=== PATIENT | female | born 1980 | race Caucasian/White ===

== ENCOUNTER 2017-07-21 00:26 | Inpatient (IN) ==
[2017-07-21 02:18] LABS: EOS# 0.02 X1000 (0.0-0.7); EOS% 0.1 % (0.0-10.0); HEMATOCRIT 40.5 % (37.0-47.0); HEMOGLOBIN 13.6 g/dL (12.0-16.0); IMM GRAN# 0.06 X1000 (0.0-0.04); IMM GRAN% 0.3 % (0.0-0.5); LYMPH# 2.88 X1000 (1.2-3.4); LYMPH% 13.6 % (20.5-51.1); MANUAL DIFF NEEDED? NO; MCH 30.7 PG (27-31); MCHC 33.6 g/dL (33-37); MCV 91.4 FL (81-99); MONO# 1.52 X1000 (0.11-0.59); MONO% 7.2 % (1.7-9.3); MPV 9.4 FL (7.4-10.4); NEUT% 78.8 % (42.2-75.2); PLT 323 X1000 (130-400); RBC 4.43 XMIL (4.2-5.4)
[2017-07-21 02:27] LABS: AGAP 14; ALBUMIN 3.8 g/dL (3.5-5.0); ALKALINE PHOSPHATASE 79 U/L (32-104); BUN 6 mg/dL (8-22); CALCIUM 8.9 mg/dL (8.8-10.2); CHLORIDE 98 mmol/L (98-107); COSMO 273; GOT 13 U/L (10-30); GPT 32 U/L (10-36); POTASSIUM 3.3 mmol/L (3.5-5.1); SODIUM 137 mmol/L (136-145); TCO2 25 mmol/L (25-35); TOTAL PROTEIN 7.3 g/dL (6.3-8.3)
[2017-07-21] MEDS ORDERED: REGLAN IV ONE (03:23)
[2017-07-21] MEDS ORDERED: MORPHINE IV ONE ×2 (03:23→05:56)
[2017-07-21] MEDS ORDERED: REGLAN ONE (03:26)
[2017-07-21] MEDS ORDERED: CIPRO 400 MG/D5W 400 MG/200 ML IVPB IV SCH (05:00)
[2017-07-21] MEDS ORDERED: MORPHINE IV PRN (05:04)
[2017-07-21] MEDS ORDERED: VANCOMYCIN IV PER PHARMACY MISC SCH (05:15)
[2017-07-21] MEDS ORDERED: VANCOMYCIN 2,000 MG in NS 500 ML IV SCH (06:00)
[2017-07-21] MEDS: MORPHINE IV PRN ×4 (08:05→14:12)
[2017-07-21] MEDS ORDERED: LEVAQUIN 750 MG/D5W 750 MG/150 ML IVPB IV SCH (10:00)
[2017-07-21] MEDS: OFIRMEV 1000 MG/ISOTONIC SOLN 1,000 MG/100 ML BOTTLE IV SCH ×3 (10:41→22:24)
[2017-07-21] MEDS ORDERED: DILAUDID IV PRN (14:50)
[2017-07-21] MEDS: MERREM 1 GM in NS 50 ML IV SCH ×2 (14:57→22:29)
[2017-07-21] MEDS: TORADOL IV SCH ×2 (14:58→20:50)
[2017-07-21] MEDS ORDERED: ROBINUL ONE (16:22)
[2017-07-21] MEDS ORDERED: XYLOCAINE-MPF 2% ONE (16:22)
[2017-07-21] MEDS ORDERED: DIPRIVAN 1% ONE (16:27)
[2017-07-21] MEDS ORDERED: XYLOCAINE-MPF 4% MISC ONE (16:36)
[2017-07-21] MEDS ORDERED: ROBINUL IV ONE (16:38)
[2017-07-21] MEDS ORDERED: DECADRON IV ONE (16:38)
[2017-07-21] MEDS ORDERED: VERSED ONE (16:39)
[2017-07-21] MEDS ORDERED: KETAMINE ONE (16:39)
[2017-07-21] MEDS ORDERED: XYLOCAINE 2% JELLY ONE (16:41)
[2017-07-21] MEDS ORDERED: XYLOCAINE 2% VISCOUS ONE ×2 (16:42)
[2017-07-21] MEDS ORDERED: NEO-SYNEPHRINE 1% NASAL SPRAY ONE (16:44)
[2017-07-21] MEDS ORDERED: SODIUM CHLORIDE 0.9% 30 ML ONE (16:48)
[2017-07-21] MEDS ORDERED: NEO-SYNEPHRINE ONE (16:48)
[2017-07-21] MEDS: NS 1,000 ML IV SCH (16:49)
[2017-07-21] MEDS ORDERED: FENTANYL ONE (16:58)
[2017-07-21] MEDS ORDERED: XYLOCAINE 1%/EPI 1:100,000 ONE (17:05)
[2017-07-21] MEDS ORDERED: LUBRIFRESH PM OPH OINTMENT ONE (18:16)
[2017-07-21] MEDS ORDERED: BSS OPHTH SOLN ONE (18:24)
[2017-07-21] MEDS: DIPRIVAN 1% 1,000 MG/100 ML BOTTLE IV SCH ×4 (18:30→23:01)
[2017-07-21] MEDS: DILAUDID IV PRN (19:16)
[2017-07-21] MEDS ORDERED: ZOFRAN ONE (19:49)
[2017-07-21 20:05] LABS: URINE CULTURE NEEDED? NO; URINE SOURCE CATH
[2017-07-21 20:15] LABS: BILIRUBIN URINE NEGATIVE (NEGATIVE); BLOOD URINE TRACE (NEGATIVE); COLOR YELLOW; GLUCOSE URINE TRACE mg/dL (NEGATIVE); LEUKOCYTES URINE NEGATIVE (NEGATIVE); NITRITE URINE NEGATIVE (NEGATIVE); PROTEIN URINE 100 mg/dL (NEGATIVE); SP GRAVITY URINE 1.042; TURBIDITY URINE HAZY (CLEAR); UROBILINOGEN URINE NORMAL (NORMAL)
[2017-07-21 20:16] LABS: URINE MICRO REVIEW NEEDED? YES
[2017-07-21 20:17] LABS: UR EPITHELIAL CELLS >10 /HPF (<10); URINE BACTERIA NEGATIVE /HPF; URINE RBC <10 /HPF (<10); URINE WBC <10 /HPF (<10)
[2017-07-22] MEDS ORDERED: VANCOMYCIN 2,000 MG in NS 500 ML IV SCH ×2
[2017-07-22] MEDS: DIPRIVAN 1% 1,000 MG/100 ML BOTTLE IV SCH ×14 (00:42→22:52)
[2017-07-22] MEDS: DILAUDID IV PRN ×5 (00:54→20:17)
[2017-07-22] MEDS: NS 1,000 ML IV SCH ×3 (02:39→16:00)
[2017-07-22] MEDS: TORADOL IV SCH ×4 (02:39→21:23)
[2017-07-22] MEDS: OFIRMEV 1000 MG/ISOTONIC SOLN 1,000 MG/100 ML BOTTLE IV SCH ×4 (03:38→22:21)
[2017-07-22 04:42] LABS: ALLEN TEST YES; BE 1.1 mmoll (-3.0-3.0); BLOOD TYPE ARTERIAL; DRAW SITE R RADIAL; METHB 1.9 % (0.0-1.5); PCO2(98.6) 37 mmHg (35-45); PO2(98.6) 154 mmHg (60-100); SAMPLE BLOOD; SAO2 99.6 % (95.0-100.0); SRATE 10 BPM; THB 11.6 g/dL (11.5-17.4); TVOL 700 mL; pH(98.6) 7.44 (7.35-7.45)
[2017-07-22 04:44] LABS: MODALITY VENTILATOR
[2017-07-22] MEDS ORDERED: NS 1,000 ML IV ONE ×2 (05:48→14:21)
[2017-07-22] MEDS: MERREM 1 GM in NS 50 ML IV SCH ×3 (06:00→21:36)
[2017-07-22 06:18] LABS: AGAP 15; BUN 9 mg/dL (8-22); CALCIUM 7.9 mg/dL (8.8-10.2); CHLORIDE 98 mmol/L (98-107); COSMO 270; POTASSIUM 4.1 mmol/L (3.5-5.1); SODIUM 135 mmol/L (136-145); TCO2 22 mmol/L (25-35)
[2017-07-22] MEDS ORDERED: SODIUM CHLORIDE 0.9% INJ PRN (06:23)
[2017-07-22 06:29] LABS: INR 1.36; PROTIME 14.6 Seconds (9.2-11.7)
[2017-07-22 06:42] LABS: HEMATOCRIT 34.7 % (37.0-47.0); HEMOGLOBIN 11.3 g/dL (12.0-16.0); IMM GRAN# 0.06 X1000 (0.0-0.04); IMM GRAN% 0.3 % (0.0-0.5); MANUAL DIFF NEEDED? YES; MCH 30.3 PG (27-31); MCHC 32.6 g/dL (33-37); MONO# 1.11 X1000 (0.11-0.59); MONO% 5.5 % (1.7-9.3); MPV 9.7 FL (7.4-10.4); NEUT% 88.2 % (42.2-75.2); PLT 347 X1000 (130-400); RBC 3.73 XMIL (4.2-5.4)
[2017-07-22 07:43] LABS: BANDS 4 % (0-1); LYMPHS 8 % (21-51); MONO 6 % (1-9)
[2017-07-22] MEDS ORDERED: NS 250 ML ONE (08:00)
[2017-07-22] MEDS ORDERED: ATIVAN IV ONE (08:30)
[2017-07-22] MEDS ORDERED: ATIVAN ONE (08:34)
[2017-07-22] MEDS: SODIUM CHLORIDE 0.9% INJ SCH (13:57)
[2017-07-22] MEDS: PROTONIX IV SCH (13:57)
[2017-07-22] MEDS: ATIVAN IV PRN ×2 (14:41→21:35)
[2017-07-22] MEDS: DUONEB (A & A) INH SCH ×3 (20:11→23:50)
[2017-07-23] MEDS: DIPRIVAN 1% 1,000 MG/100 ML BOTTLE IV SCH ×12 (00:32→22:36)
[2017-07-23] MEDS: NS 1,000 ML IV SCH ×4 (00:43→21:00)
[2017-07-23] MEDS: TORADOL IV SCH ×4 (02:14→20:37)
[2017-07-23] MEDS: DUONEB (A & A) INH SCH ×6 (02:55→23:05)
[2017-07-23] MEDS: OFIRMEV 1000 MG/ISOTONIC SOLN 1,000 MG/100 ML BOTTLE IV SCH ×4 (04:02→22:36)
[2017-07-23] MEDS: DILAUDID IV PRN ×6 (04:30→20:38)
[2017-07-23 04:56] LABS: ALLEN TEST YES; BE -3.2 mmoll (-3.0-3.0); BLOOD TYPE ARTERIAL; DRAW SITE R RADIAL; METHB 1.4 % (0.0-1.5); O2(CT) 18.1 mL/dL (15.0-23.0); PCO2(98.6) 35 mmHg (35-45); PO2(98.6) 123 mmHg (60-100); SAMPLE BLOOD; SRATE 10 BPM; THB 13.2 g/dL (11.5-17.4); TVOL 600 mL; pH(98.6) 7.39 (7.35-7.45)
[2017-07-23 04:57] LABS: MODALITY VENTILATOR
[2017-07-23] MEDS: MERREM 1 GM in NS 50 ML IV SCH ×3 (05:25→22:36)
[2017-07-23 05:30] LABS: HEMATOCRIT 28.5 % (37.0-47.0); HEMOGLOBIN 9.3 g/dL (12.0-16.0); MCH 31.6 PG (27-31); MCHC 32.6 g/dL (33-37); MCV 96.9 FL (81-99); MPV 9.4 FL (7.4-10.4); RBC 2.94 XMIL (4.2-5.4)
[2017-07-23 06:06] LABS: AGAP 16; ALBUMIN 2.3 g/dL (3.5-5.0); ALKALINE PHOSPHATASE 51 U/L (32-104); BUN 15 mg/dL (8-22); CALCIUM 7.9 mg/dL (8.8-10.2); CHLORIDE 100 mmol/L (98-107); COSMO 276; GOT 21 U/L (10-30); GPT 28 U/L (10-36); MAGNESIUM 1.9 mg/dL (1.5-2.7); POTASSIUM 3.6 mmol/L (3.5-5.1); SODIUM 138 mmol/L (136-145); TCO2 22 mmol/L (25-35); TOTAL BILIRUBIN 0.18 mg/dL (0.20-1.00); TOTAL PROTEIN 5.1 g/dL (6.3-8.3)
[2017-07-23] MEDS ORDERED: NS + KCL 40 MEQ 1,000 ML IV SCH (11:00)
[2017-07-23] MEDS: PROTONIX IV SCH (12:32)
[2017-07-23] MEDS: SODIUM CHLORIDE 0.9% INJ SCH (12:32)
[2017-07-23] MEDS: ATIVAN IV PRN ×2 (14:01→19:48)
[2017-07-23] MEDS: MUCOMYST 20% INH SCH (19:52)
[2017-07-23] MEDS ORDERED: LASIX IV ONE (22:15)
[2017-07-24] MEDS: DIPRIVAN 1% 1,000 MG/100 ML BOTTLE IV SCH ×11 (00:14→21:17)
[2017-07-24] MEDS: ATIVAN IV PRN (00:23)
[2017-07-24] MEDS: DILAUDID IV PRN ×3 (00:26→03:33)
[2017-07-24] MEDS: TORADOL IV SCH ×2 (03:31→09:34)
[2017-07-24] MEDS: DUONEB (A & A) INH SCH ×6 (03:32→22:51)
[2017-07-24] MEDS: OFIRMEV 1000 MG/ISOTONIC SOLN 1,000 MG/100 ML BOTTLE IV SCH ×2 (03:32→09:53)
[2017-07-24 04:28] LABS: ALLEN TEST YES; BE -5.6 mmoll (-3.0-3.0); BLOOD TYPE ARTERIAL; DRAW SITE R RADIAL; METHB 1.4 % (0.0-1.5); O2(CT) 12.5 mL/dL (15.0-23.0); PCO2(98.6) 46 mmHg (35-45); PO2(98.6) 68 mmHg (60-100); SAMPLE BLOOD; SAO2 95.1 % (95.0-100.0); SRATE 10 BPM; THB 9.6 g/dL (11.5-17.4); TVOL 600 mL; pH(98.6) 7.27 (7.35-7.45)
[2017-07-24 04:29] LABS: MODALITY VENTILATOR
[2017-07-24 05:01] LABS: HEMATOCRIT 30.1 % (37.0-47.0); HEMOGLOBIN 10.2 g/dL (12.0-16.0); MCH 32.4 PG (27-31); MCHC 33.9 g/dL (33-37); MCV 95.6 FL (81-99); RBC 3.15 XMIL (4.2-5.4)
[2017-07-24] MEDS: NS 1,000 ML IV SCH (05:04)
[2017-07-24 06:28] LABS: AGAP 19; ALBUMIN 1.8 g/dL (3.5-5.0); ALKALINE PHOSPHATASE 59 U/L (32-104); BUN 12 mg/dL (8-22); CALCIUM 7.8 mg/dL (8.8-10.2); CHLORIDE 101 mmol/L (98-107); COSMO 272; GOT 29 U/L (10-30); GPT 14 U/L (10-36); MAGNESIUM 1.7 mg/dL (1.5-2.7); POTASSIUM 4.4 mmol/L (3.5-5.1); SODIUM 137 mmol/L (136-145); TCO2 17 mmol/L (25-35); TOTAL BILIRUBIN 0.28 mg/dL (0.20-1.00); TOTAL PROTEIN 4.9 g/dL (6.3-8.3)
[2017-07-24] MEDS: MERREM 1 GM in NS 50 ML IV SCH ×3 (06:55→22:07)
[2017-07-24] MEDS: MUCOMYST 20% INH SCH ×2 (07:15→19:03)
[2017-07-24] MEDS ORDERED: KETAMINE ONE (08:47)
[2017-07-24] MEDS ORDERED: NORCURON ONE (09:22)
[2017-07-24] MEDS: NIMBEX 80 MG in NS 160 ML IV SCH ×4 (09:36→21:45)
[2017-07-24] MEDS ORDERED: LASIX IV STA ×2 (09:43→10:19)
[2017-07-24] MEDS ORDERED: DILAUDID IV PRN (10:01)
[2017-07-24] MEDS: ALBUMIN 25% IV SCH ×3 (10:18→22:00)
[2017-07-24] MEDS: SODIUM BICARBONATE 8.4% 100 MEQ in D5W 1,000 ML IV SCH (10:57)
[2017-07-24] MEDS: XYLOCAINE-MPF 4% ONE (11:03)
[2017-07-24] MEDS ORDERED: ROBINUL ONE (11:55)
[2017-07-24] MEDS: ATIVAN IV SCH ×3 (12:33→20:14)
[2017-07-24] MEDS: SODIUM CHLORIDE 0.9% INJ SCH (12:33)
[2017-07-24] MEDS: PROTONIX IV SCH (12:33)
[2017-07-24 14:45] LABS: ALLEN TEST YES; BE -4.7 mmoll (-3.0-3.0); BLOOD TYPE ARTERIAL; DRAW SITE R RADIAL; O2(CT) 12.3 mL/dL (15.0-23.0); PO2(98.6) 63 mmHg (60-100); SAMPLE BLOOD; SAO2 96.5 % (95.0-100.0); SRATE 6 BPM; THB 9.5 g/dL (11.5-17.4); TVOL 400 mL
[2017-07-24 14:48] LABS: MODALITY VENTILATOR; PCO2(98.6) 71 mmHg (35-45); pH(98.6) 7.15 (7.35-7.45)
[2017-07-24] MEDS: LASIX IV SCH ×2 (15:00→22:23)
[2017-07-24] MEDS: DILAUDID IV SCH ×4 (15:00→22:16)
[2017-07-24] MEDS ORDERED: NS 1,000 ML ONE (17:23)
[2017-07-24] MEDS ORDERED: LASIX IV ONE (18:07)
[2017-07-24 19:22] LABS: AGAP 18; BUN 12 mg/dL (8-22); CALCIUM 7.8 mg/dL (8.8-10.2); CHLORIDE 97 mmol/L (98-107); COSMO 277; MAGNESIUM 1.6 mg/dL (1.5-2.7); POTASSIUM 4.7 mmol/L (3.5-5.1); SODIUM 138 mmol/L (136-145); TCO2 23 mmol/L (25-35)
[2017-07-24] MEDS: NS 500 ML IV SCH (20:16)
[2017-07-25] MEDS: DIPRIVAN 1% 1,000 MG/100 ML BOTTLE IV SCH ×15 (00:08→22:32)
[2017-07-25] MEDS: ATIVAN IV SCH ×6 (00:08→21:02)
[2017-07-25] MEDS: DILAUDID IV SCH ×11 (00:08→21:03)
[2017-07-25] MEDS: NIMBEX 80 MG in NS 160 ML IV SCH ×9 (01:18→22:32)
[2017-07-25] MEDS: SODIUM BICARBONATE 8.4% 100 MEQ in D5W 1,000 ML IV SCH ×2 (01:18→22:32)
[2017-07-25] MEDS: DUONEB (A & A) INH SCH ×6 (02:48→22:52)
[2017-07-25] MEDS: LASIX IV SCH ×4 (04:14→21:02)
[2017-07-25 04:34] LABS: ALLEN TEST YES; BE 3.1 mmoll (-3.0-3.0); BLOOD TYPE ARTERIAL; DRAW SITE R RADIAL; METHB 2.3 % (0.0-1.5); O2(CT) 13.9 mL/dL (15.0-23.0); PO2(98.6) 257 mmHg (60-100); SAMPLE BLOOD; SAO2 100.8 % (95.0-100.0); SRATE 18 BPM; THB 9.7 g/dL (11.5-17.4); TVOL 400 mL; pH(98.6) 7.29 (7.35-7.45)
[2017-07-25 04:35] LABS: PCO2(98.6) 64 mmHg (35-45)
[2017-07-25 04:36] LABS: MODALITY VENTILATOR
[2017-07-25 04:59] LABS: HEMATOCRIT 29.7 % (37.0-47.0); HEMOGLOBIN 10.7 g/dL (12.0-16.0); MCH 35.2 PG (27-31); MCV 97.7 FL (81-99); MPV 9.7 FL (7.4-10.4); RBC 3.04 XMIL (4.2-5.4)
[2017-07-25] MEDS: MERREM 1 GM in NS 50 ML IV SCH ×3 (05:19→21:02)
[2017-07-25 05:20] LABS: AGAP 15; ALBUMIN 2.3 g/dL (3.5-5.0); ALKALINE PHOSPHATASE 68 U/L (32-104); BUN 11 mg/dL (8-22); CALCIUM 7.9 mg/dL (8.8-10.2); CHLORIDE 97 mmol/L (98-107); COSMO 278; MAGNESIUM 1.6 mg/dL (1.5-2.7); POTASSIUM 3.8 mmol/L (3.5-5.1); SODIUM 139 mmol/L (136-145); TCO2 27 mmol/L (25-35); TOTAL BILIRUBIN 0.58 mg/dL (0.20-1.00)
[2017-07-25 06:08] LABS: GOT 71 U/L (10-30); GPT 39 U/L (10-36)
[2017-07-25] MEDS: MUCOMYST 20% INH SCH ×2 (07:28→18:55)
[2017-07-25] MEDS ORDERED: MAGNESIUM SULFATE 2 GM/S.W.I. 2 GM/50 ML IVPB IV ONE (09:18)
[2017-07-25] MEDS: SODIUM CHLORIDE 0.9% INJ SCH (12:14)
[2017-07-25] MEDS: PROTONIX IV SCH (12:14)
[2017-07-25] MEDS: NS 500 ML IV SCH ×2 (13:31→21:02)
[2017-07-26] MEDS: SODIUM BICARBONATE 8.4% 100 MEQ in D5W 1,000 ML IV SCH (00:17)
[2017-07-26] MEDS: ATIVAN IV SCH ×6 (00:18→19:57)
[2017-07-26] MEDS: DILAUDID IV SCH ×13 (00:18→22:37)
[2017-07-26] MEDS: DIPRIVAN 1% 1,000 MG/100 ML BOTTLE IV SCH ×14 (00:21→22:38)
[2017-07-26] MEDS: NIMBEX 80 MG in NS 160 ML IV SCH ×2 (02:50→06:35)
[2017-07-26] MEDS: DUONEB (A & A) INH SCH ×6 (03:12→22:55)
[2017-07-26] MEDS: LASIX IV SCH ×4 (04:06→22:38)
[2017-07-26 04:35] LABS: ALLEN TEST YES; BE 18.8 mmoll (-3.0-3.0); BLOOD TYPE ARTERIAL; DRAW SITE R RADIAL; O2(CT) 10.9 mL/dL (15.0-23.0); PO2(98.6) 169 mmHg (60-100); SAMPLE BLOOD; SAO2 100.1 % (95.0-100.0); SRATE 18 BPM; THB 7.8 g/dL (11.5-17.4); TVOL 400 mL; pH(98.6) 7.49 (7.35-7.45)
[2017-07-26 04:37] LABS: PCO2(98.6) 58 mmHg (35-45)
[2017-07-26 04:38] LABS: MODALITY VENTILATOR
[2017-07-26] MEDS: MERREM 1 GM in NS 50 ML IV SCH ×2 (05:06→14:07)
[2017-07-26 05:55] LABS: HEMATOCRIT 26.4 % (37.0-47.0); HEMOGLOBIN 10.1 g/dL (12.0-16.0); MCHC 38.3 g/dL (33-37); MCV 96.7 FL (81-99); MPV 9.7 FL (7.4-10.4); RBC 2.73 XMIL (4.2-5.4)
[2017-07-26 06:26] LABS: AGAP 16; ALBUMIN 2.3 g/dL (3.5-5.0); ALKALINE PHOSPHATASE 71 U/L (32-104); BUN 8 mg/dL (8-22); CALCIUM 7.7 mg/dL (8.8-10.2); CHLORIDE 90 mmol/L (98-107); COSMO 279; GOT 46 U/L (10-30); GPT 36 U/L (10-36); POTASSIUM 2.9 mmol/L (3.5-5.1); SODIUM 141 mmol/L (136-145); TCO2 35 mmol/L (25-35); TOTAL BILIRUBIN 0.45 mg/dL (0.20-1.00); TOTAL PROTEIN 5.6 g/dL (6.3-8.3)
[2017-07-26] MEDS: DIFLUCAN 400 MG/NS 400 MG/200 ML IVPB IV SCH (06:35)
[2017-07-26] MEDS: MUCOMYST 20% INH SCH ×2 (07:41→20:18)
[2017-07-26] MEDS ORDERED: POTASSIUM CHLORIDE 60 MEQ in NS 500 ML IV ONE (07:51)
[2017-07-26] MEDS: D5 1/2 NS 1,000 ML IV SCH (09:51)
[2017-07-26] MEDS: SODIUM CHLORIDE 0.9% INJ SCH (12:22)
[2017-07-26] MEDS: PROTONIX IV SCH (12:22)
[2017-07-26] MEDS: OFIRMEV 1000 MG/ISOTONIC SOLN 1,000 MG/100 ML BOTTLE IV PRN (15:21)
[2017-07-26] MEDS: NS 500 ML IV SCH (18:43)
[2017-07-26] MEDS: INVANZ 1 GM/NS 1 GM/50 ML IVPB IV SCH (19:57)
[2017-07-27] MEDS: ATIVAN IV SCH ×6 (00:10→20:07)
[2017-07-27] MEDS: DILAUDID IV SCH ×13 (00:10→23:15)
[2017-07-27] MEDS: DIPRIVAN 1% 1,000 MG/100 ML BOTTLE IV SCH ×13 (00:23→23:39)
[2017-07-27] MEDS: DUONEB (A & A) INH SCH ×6 (03:23→23:30)
[2017-07-27] MEDS: LASIX IV SCH ×2 (03:53→13:05)
[2017-07-27 04:54] LABS: ALLEN TEST YES; BLOOD TYPE ARTERIAL; DRAW SITE R RADIAL; METHB 2.5 % (0.0-1.5); O2(CT) 11.5 mL/dL (15.0-23.0); PO2(98.6) 112 mmHg (60-100); SAMPLE BLOOD; SAO2 100.4 % (95.0-100.0); SRATE 16 BPM; THB 8.4 g/dL (11.5-17.4); TVOL 400 mL; pH(98.6) 7.54 (7.35-7.45)
[2017-07-27 04:57] LABS: MODALITY VENTILATOR
[2017-07-27 04:58] LABS: PCO2(98.6) 55 mmHg (35-45)
[2017-07-27] MEDS: NS 500 ML IV SCH (05:09)
[2017-07-27 05:50] LABS: AGAP 14; ALBUMIN 2.3 g/dL (3.5-5.0); ALKALINE PHOSPHATASE 88 U/L (32-104); BUN 14 mg/dL (8-22); CALCIUM 7.6 mg/dL (8.8-10.2); CHLORIDE 89 mmol/L (98-107); COSMO 285; GOT 69 U/L (10-30); GPT 40 U/L (10-36); SODIUM 142 mmol/L (136-145); TCO2 39 mmol/L (25-35); TOTAL BILIRUBIN 0.63 mg/dL (0.20-1.00); TOTAL PROTEIN 5.4 g/dL (6.3-8.3)
[2017-07-27 05:54] LABS: MAGNESIUM 1.9 mg/dL (1.5-2.7)
[2017-07-27] MEDS: DIFLUCAN 400 MG/NS 400 MG/200 ML IVPB IV SCH (05:57)
[2017-07-27] MEDS: D5 1/2 NS 1,000 ML IV SCH (05:57)
[2017-07-27 06:26] LABS: HEMATOCRIT 28.5 % (37.0-47.0); HEMOGLOBIN 10.7 g/dL (12.0-16.0); MCH 36.4 PG (27-31); MCHC 37.5 g/dL (33-37); MCV 96.9 FL (81-99); MPV 9.8 FL (7.4-10.4); RBC 2.94 XMIL (4.2-5.4)
[2017-07-27] MEDS: OFIRMEV 1000 MG/ISOTONIC SOLN 1,000 MG/100 ML BOTTLE IV PRN (07:57)
[2017-07-27] MEDS: MUCOMYST 20% INH SCH ×2 (07:57→19:59)
[2017-07-27 08:45] LABS: POTASSIUM 2.1 mmol/L (3.5-5.1)
[2017-07-27] MEDS: LOVENOX SUBQ SCH (09:14)
[2017-07-27] MEDS ORDERED: POTASSIUM PHOSPHATE 30 MMOL in NS 250 ML IV ONE (10:00)
[2017-07-27] MEDS: PROTONIX IV SCH (13:05)
[2017-07-27 16:24] LABS: POTASSIUM 2.9 mmol/L (3.5-5.1)
[2017-07-27] MEDS: INVANZ 1 GM/NS 1 GM/50 ML IVPB IV SCH (21:13)
[2017-07-28] MEDS: OFIRMEV 1000 MG/ISOTONIC SOLN 1,000 MG/100 ML BOTTLE IV PRN (00:09)
[2017-07-28] MEDS: POTASSIUM CHLORIDE 20 MEQ/SWI 20 MEQ/100 ML IVPB IV SCH ×2 (00:09→02:28)
[2017-07-28] MEDS: ATIVAN IV SCH ×6 (00:09→20:28)
[2017-07-28] MEDS: DILAUDID IV SCH ×12 (01:01→22:43)
[2017-07-28] MEDS: D5 1/2 NS 1,000 ML IV SCH (01:21)
[2017-07-28] MEDS: DIPRIVAN 1% 1,000 MG/100 ML BOTTLE IV SCH ×9 (01:21→22:43)
[2017-07-28] MEDS: LASIX IV SCH (02:29)
[2017-07-28] MEDS: DUONEB (A & A) INH SCH ×6 (04:05→23:31)
[2017-07-28 04:58] LABS: ALLEN TEST YES; BE 19.8 mmoll (-3.0-3.0); BLOOD TYPE ARTERIAL; DRAW SITE R RADIAL; O2(CT) 14.3 mL/dL (15.0-23.0); PCO2(98.6) 43 mmHg (35-45); PO2(98.6) 104 mmHg (60-100); SAMPLE BLOOD; SAO2 100.8 % (95.0-100.0); SRATE 12 BPM; THB 10.7 g/dL (11.5-17.4); TVOL 500 mL
[2017-07-28 04:59] LABS: METHB 3.6 % (0.0-1.5); MODALITY VENTILATOR; pH(98.6) 7.61 (7.35-7.45)
[2017-07-28] MEDS: DIFLUCAN 400 MG/NS 400 MG/200 ML IVPB IV SCH (06:00)
[2017-07-28] MEDS: NS 500 ML IV SCH (06:04)
[2017-07-28 06:55] LABS: HEMATOCRIT 27.2 % (37.0-47.0); HEMOGLOBIN 10.2 g/dL (12.0-16.0); MCH 34.9 PG (27-31); MCHC 37.5 g/dL (33-37); MCV 93.2 FL (81-99); RBC 2.92 XMIL (4.2-5.4)
[2017-07-28 07:18] LABS: ALBUMIN 1.3 g/dL (3.5-5.0); CALCIUM 7.5 mg/dL (8.8-10.2); TOTAL BILIRUBIN 0.65 mg/dL (0.20-1.00)
[2017-07-28 07:38] LABS: POTASSIUM 2.5 mmol/L (3.5-5.1)
[2017-07-28] MEDS ORDERED: POTASSIUM CHLORIDE 40 MEQ/SWI 40 MEQ/100 ML IVPB IV ONE (08:19)
[2017-07-28] MEDS: LOVENOX SUBQ SCH (08:48)
[2017-07-28] MEDS: NS 1,000 ML IV SCH (10:49)
[2017-07-28] MEDS: MUCOMYST 20% INH SCH ×2 (11:52→19:10)
[2017-07-28] MEDS: PROTONIX IV SCH (13:40)
[2017-07-28] MEDS: POTASSIUM CHLORIDE 20% LIQUID PO SCH (17:20)
[2017-07-28] MEDS: INVANZ 1 GM/NS 1 GM/50 ML IVPB IV SCH (20:28)
[2017-07-29] MEDS: ATIVAN IV SCH ×7 (00:34→23:47)
[2017-07-29] MEDS: DILAUDID IV SCH ×12 (00:35→23:47)
[2017-07-29] MEDS: DIPRIVAN 1% 1,000 MG/100 ML BOTTLE IV SCH ×13 (01:00→23:47)
[2017-07-29] MEDS: POTASSIUM CHLORIDE 20% LIQUID PO SCH (02:34)
[2017-07-29] MEDS: NS 500 ML IV SCH ×2 (03:09→19:20)
[2017-07-29] MEDS: DUONEB (A & A) INH SCH ×6 (03:30→23:30)
[2017-07-29 04:44] LABS: ALLEN TEST YES; BE 23.1 mmoll (-3.0-3.0); BLOOD TYPE ARTERIAL; DRAW SITE R RADIAL; METHB 1.6 % (0.0-1.5); MODALITY VENTILATOR; O2(CT) 16.7 mL/dL (15.0-23.0); PCO2(98.6) 56 mmHg (35-45); PO2(98.6) 74 mmHg (60-100); SAMPLE BLOOD; SAO2 99.5 % (95.0-100.0); SRATE 12 BPM; THB 12.6 g/dL (11.5-17.4); TVOL 400 mL; pH(98.6) 7.55 (7.35-7.45)
[2017-07-29] MEDS: NS 1,000 ML IV SCH (05:59)
[2017-07-29] MEDS: DIFLUCAN 400 MG/NS 400 MG/200 ML IVPB IV SCH (05:59)
[2017-07-29 06:05] LABS: BASO% 0.2 % (0.0-0.8); EOS# 0.23 X1000 (0.0-0.7); HEMATOCRIT 25.4 % (37.0-47.0); IMM GRAN# 0.16 X1000 (0.0-0.04); IMM GRAN% 1.4 % (0.0-0.5); LYMPH# 1.46 X1000 (1.2-3.4); MANUAL DIFF NEEDED? YES; MCH 36.9 PG (27-31); MCHC 39.4 g/dL (33-37); MCV 93.7 FL (81-99); MONO# 0.53 X1000 (0.11-0.59); MONO% 4.7 % (1.7-9.3); MPV 10.7 FL (7.4-10.4); NEUT% 78.7 % (42.2-75.2); PLT 374 X1000 (130-400); RBC 2.71 XMIL (4.2-5.4)
[2017-07-29 06:29] LABS: SODIUM 139 mmol/L (136-145)
[2017-07-29 06:30] LABS: AGAP 13; ALBUMIN 1.2 g/dL (3.5-5.0); ALKALINE PHOSPHATASE 100 U/L (32-104); BUN 29 mg/dL (8-22); CALCIUM 7.5 mg/dL (8.8-10.2); CHLORIDE 92 mmol/L (98-107); COSMO 285; GOT 95 U/L (10-30); GPT 46 U/L (10-36); POTASSIUM 4.9 mmol/L (3.5-5.1); TCO2 34 mmol/L (25-35); TOTAL BILIRUBIN 0.35 mg/dL (0.20-1.00); TOTAL PROTEIN 5.8 g/dL (6.3-8.3)
[2017-07-29 06:43] LABS: BANDS 10 % (0-1); LYMPHS 10 % (21-51); MONO 2 % (1-9)
[2017-07-29] MEDS: MUCOMYST 20% INH SCH ×2 (08:06→19:40)
[2017-07-29] MEDS: OFIRMEV 1000 MG/ISOTONIC SOLN 1,000 MG/100 ML BOTTLE IV PRN (08:54)
[2017-07-29] MEDS: LOVENOX SUBQ SCH (08:55)
[2017-07-29] MEDS: ALBUMIN 25% IV SCH ×3 (10:04→21:12)
[2017-07-29] MEDS: LASIX IV SCH ×3 (11:12→22:43)
[2017-07-29 11:21] LABS: UR CREAT RANDOM 115.4 mg/dL (11-20)
[2017-07-29] MEDS: PROTONIX IV SCH (13:23)
[2017-07-29] MEDS: SODIUM CHLORIDE 0.9% INJ SCH (13:23)
[2017-07-29] MEDS: INVANZ 1 GM/NS 1 GM/50 ML IVPB IV SCH (20:19)
[2017-07-30] MEDS: DIPRIVAN 1% 1,000 MG/100 ML BOTTLE IV SCH ×10 (01:29→23:29)
[2017-07-30] MEDS: DILAUDID IV SCH ×5 (01:29→09:14)
[2017-07-30] MEDS: NS 1,000 ML IV SCH ×2 (01:30→21:49)
[2017-07-30] MEDS: DUONEB (A & A) INH SCH ×6 (03:25→23:25)
[2017-07-30] MEDS: ATIVAN IV SCH ×2 (04:17→08:18)
[2017-07-30] MEDS ORDERED: CARDIZEM 100 MG/NS 100 MG/100 ML IVPB ONE (04:37)
[2017-07-30 04:41] LABS: ALLEN TEST YES; BE 21.4 mmoll (-3.0-3.0); BLOOD TYPE ARTERIAL; DRAW SITE R RADIAL; METHB 1.5 % (0.0-1.5); O2(CT) 9.9 mL/dL (15.0-23.0); PO2(98.6) 138 mmHg (60-100); SAMPLE BLOOD; SAO2 101.3 % (95.0-100.0); SRATE 12 BPM; TVOL 400 mL
[2017-07-30 04:42] LABS: pH(98.6) 7.56 (7.35-7.45)
[2017-07-30 04:43] LABS: MODALITY VENTILATOR; PCO2(98.6) 51 mmHg (35-45)
[2017-07-30 04:59] LABS: HEMATOCRIT 23.3 % (37.0-47.0); MCH 38.1 PG (27-31); MCHC 38.6 g/dL (33-37); MCV 98.7 FL (81-99); MPV 10.7 FL (7.4-10.4); RBC 2.36 XMIL (4.2-5.4)
[2017-07-30 05:17] LABS: MAGNESIUM 2.5 mg/dL (1.5-2.7)
[2017-07-30 05:23] LABS: AGAP 11; ALBUMIN 2.6 g/dL (3.5-5.0); ALKALINE PHOSPHATASE 91 U/L (32-104); BUN 31 mg/dL (8-22); CALCIUM 7.9 mg/dL (8.8-10.2); CHLORIDE 92 mmol/L (98-107); COSMO 286; SODIUM 140 mmol/L (136-145); TCO2 37 mmol/L (25-35); TOTAL PROTEIN 6.3 g/dL (6.3-8.3)
[2017-07-30 05:30] LABS: GOT 217 U/L (10-30); GPT 101 U/L (10-36)
[2017-07-30] MEDS: DIFLUCAN 400 MG/NS 400 MG/200 ML IVPB IV SCH (05:55)
[2017-07-30] MEDS: MUCOMYST 20% INH SCH ×2 (07:07→19:43)
[2017-07-30] MEDS: LOVENOX SUBQ SCH (09:15)
[2017-07-30] MEDS: LASIX IV SCH ×3 (10:06→21:50)
[2017-07-30] MEDS: SODIUM CHLORIDE 0.9% INJ SCH (13:12)
[2017-07-30] MEDS: PROTONIX IV SCH (13:12)
[2017-07-30] MEDS: OFIRMEV 1000 MG/ISOTONIC SOLN 1,000 MG/100 ML BOTTLE IV PRN (16:06)
[2017-07-30] MEDS: DILAUDID IV PRN ×3 (17:39→21:50)
[2017-07-30] MEDS: INVANZ 1 GM/NS 1 GM/50 ML IVPB IV SCH (20:06)
[2017-07-30] MEDS: ATIVAN IV PRN (20:07)
[2017-07-30] MEDS: NS 500 ML IV SCH (20:17)
[2017-07-31] MEDS: DUONEB (A & A) INH SCH ×6 (03:12→22:55)
[2017-07-31] MEDS: DIPRIVAN 1% 1,000 MG/100 ML BOTTLE IV SCH ×9 (03:31→23:05)
[2017-07-31] MEDS: DILAUDID IV PRN ×7 (03:31→23:09)
[2017-07-31 04:23] LABS: ALLEN TEST YES; BE 17.1 mmoll (-3.0-3.0); BLOOD TYPE ARTERIAL; DRAW SITE R RADIAL; METHB 2.3 % (0.0-1.5); O2(CT) 9.5 mL/dL (15.0-23.0); PO2(98.6) 117 mmHg (60-100); SAMPLE BLOOD; SAO2 106.7 % (95.0-100.0); SRATE 12 BPM; THB 6.7 g/dL (11.5-17.4); TVOL 400 mL; pH(98.6) 7.52 (7.35-7.45)
[2017-07-31 04:25] LABS: MODALITY VENTILATOR; PCO2(98.6) 51 mmHg (35-45)
[2017-07-31 05:14] LABS: HEMATOCRIT 23.7 % (37.0-47.0); HEMOGLOBIN 9.4 g/dL (12.0-16.0); MCH 39.2 PG (27-31); MCHC 39.7 g/dL (33-37); MCV 98.8 FL (81-99); MPV 11.2 FL (7.4-10.4); RBC 2.4 XMIL (4.2-5.4)
[2017-07-31] MEDS: DIFLUCAN 400 MG/NS 400 MG/200 ML IVPB IV SCH (05:22)
[2017-07-31 05:36] LABS: AGAP 11; ALBUMIN 2.3 g/dL (3.5-5.0); ALKALINE PHOSPHATASE 87 U/L (32-104); BUN 33 mg/dL (8-22); CALCIUM 8.4 mg/dL (8.8-10.2); CHLORIDE 91 mmol/L (98-107); COSMO 283; POTASSIUM 4.4 mmol/L (3.5-5.1); SODIUM 138 mmol/L (136-145); TCO2 36 mmol/L (25-35); TOTAL BILIRUBIN 0.72 mg/dL (0.20-1.00); TOTAL PROTEIN 6.2 g/dL (6.3-8.3)
[2017-07-31 05:41] LABS: GOT 189 U/L (10-30); GPT 121 U/L (10-36)
[2017-07-31] MEDS: MUCOMYST 20% INH SCH ×2 (08:22→19:52)
[2017-07-31] MEDS: LOVENOX SUBQ SCH (09:38)
[2017-07-31] MEDS: LASIX IV SCH ×2 (11:41→18:34)
[2017-07-31 11:50] LABS: URINE CULTURE NEEDED? NO; URINE SOURCE CATH
[2017-07-31 11:59] LABS: BILIRUBIN URINE NEGATIVE (NEGATIVE); BLOOD URINE NEGATIVE (NEGATIVE); COLOR YELLOW; GLUCOSE URINE NEGATIVE (NEGATIVE); LEUKOCYTES URINE NEGATIVE (NEGATIVE); NITRITE URINE NEGATIVE (NEGATIVE); PH URINE 7.5; PROTEIN URINE 30 mg/dL (NEGATIVE); SP GRAVITY URINE 1.027; TURBIDITY URINE CLEAR (CLEAR); URINE MICRO REVIEW NEEDED? YES; UROBILINOGEN URINE 4 mg/dL (NORMAL)
[2017-07-31 12:12] LABS: UR EPITHELIAL CELLS <10 /HPF (<10); URINE BACTERIA NEGATIVE /HPF; URINE RBC <10 /HPF (<10); URINE WBC <10 /HPF (<10)
[2017-07-31 12:21] LABS: URINE CASTS NONE SEEN; URINE CRYSTALS NONE SEEN
[2017-07-31] MEDS: SODIUM CHLORIDE 0.9% INJ SCH (12:58)
[2017-07-31] MEDS: PROTONIX IV SCH (12:58)
[2017-07-31] MEDS: OFIRMEV 1000 MG/ISOTONIC SOLN 1,000 MG/100 ML BOTTLE IV PRN ×2 (13:13→19:13)
[2017-07-31] MEDS: NS 500 ML IV SCH ×2 (15:54→19:14)
[2017-07-31] MEDS: NS 1,000 ML IV SCH (18:34)
[2017-07-31] MEDS: ATIVAN IV PRN (19:13)
[2017-07-31] MEDS: INVANZ 1 GM/NS 1 GM/50 ML IVPB IV SCH (19:21)
[2017-08-01] MEDS: ATIVAN IV PRN ×3 (00:53→15:39)
[2017-08-01] MEDS: DILAUDID IV PRN ×5 (00:53→15:39)
[2017-08-01] MEDS: DUONEB (A & A) INH SCH ×6 (02:50→22:34)
[2017-08-01] MEDS: DIPRIVAN 1% 1,000 MG/100 ML BOTTLE IV SCH ×8 (03:14→22:31)
[2017-08-01] MEDS: LASIX IV SCH ×4 (03:15→20:58)
[2017-08-01 04:55] LABS: ALLEN TEST YES; BE 15.1 mmoll (-3.0-3.0); BLOOD TYPE ARTERIAL; DRAW SITE R RADIAL; PCO2(98.6) 47 mmHg (35-45); PO2(98.6) 75 mmHg (60-100); SAMPLE BLOOD; SAO2 102.1 % (95.0-100.0); SRATE 12 BPM; THB 7.6 g/dL (11.5-17.4); TVOL 400 mL; pH(98.6) 7.53 (7.35-7.45)
[2017-08-01 04:56] LABS: METHB 4.6 % (0.0-1.5); MODALITY VENTILATOR
[2017-08-01] MEDS: DIFLUCAN 400 MG/NS 400 MG/200 ML IVPB IV SCH (05:50)
[2017-08-01 06:03] LABS: HEMATOCRIT 23.5 % (37.0-47.0); HEMOGLOBIN 9.5 g/dL (12.0-16.0); MCH 39.9 PG (27-31); MCHC 40.4 g/dL (33-37); MCV 98.7 FL (81-99); MPV 11.6 FL (7.4-10.4); RBC 2.38 XMIL (4.2-5.4)
[2017-08-01 06:09] LABS: AGAP 16; ALKALINE PHOSPHATASE 84 U/L (32-104); BUN 29 mg/dL (8-22); CALCIUM 8.3 mg/dL (8.8-10.2); CHLORIDE 90 mmol/L (98-107); COSMO 283; POTASSIUM 3.7 mmol/L (3.5-5.1); SODIUM 139 mmol/L (136-145); TCO2 33 mmol/L (25-35); TOTAL BILIRUBIN 0.62 mg/dL (0.20-1.00); TOTAL PROTEIN 5.9 g/dL (6.3-8.3)
[2017-08-01 06:24] LABS: GOT 100 U/L (10-30); GPT 86 U/L (10-36)
[2017-08-01] MEDS: MUCOMYST 20% INH SCH ×2 (07:45→22:34)
[2017-08-01] MEDS: LOVENOX SUBQ SCH (09:12)
[2017-08-01] MEDS: NS 1,000 ML IV SCH (12:41)
[2017-08-01] MEDS: PROTONIX IV SCH (12:43)
[2017-08-01] MEDS: SODIUM CHLORIDE 0.9% INJ SCH (12:43)
[2017-08-01] MEDS: OFIRMEV 1000 MG/ISOTONIC SOLN 1,000 MG/100 ML BOTTLE IV PRN ×2 (15:39→23:05)
[2017-08-01] MEDS: NS 500 ML IV SCH (19:18)
[2017-08-01] MEDS: INVANZ 1 GM/NS 1 GM/50 ML IVPB IV SCH (20:58)
[2017-08-02] MEDS: DIPRIVAN 1% 1,000 MG/100 ML BOTTLE IV SCH ×11 (00:48→22:15)
[2017-08-02] MEDS: DUONEB (A & A) INH SCH ×6 (03:01→22:45)
[2017-08-02 04:19] LABS: ALLEN TEST YES; BE 15.1 mmoll (-3.0-3.0); BLOOD TYPE ARTERIAL; DRAW SITE L RADIAL; METHB 4.8 % (0.0-1.5); PCO2(98.6) 42 mmHg (35-45); PO2(98.6) 106 mmHg (60-100); SAMPLE BLOOD; SAO2 103.4 % (95.0-100.0); SRATE 12 BPM; THB 8.2 g/dL (11.5-17.4); TVOL 400 mL
[2017-08-02 04:20] LABS: MODALITY VENTILATOR
[2017-08-02 04:21] LABS: pH(98.6) 7.57 (7.35-7.45)
[2017-08-02 04:48] LABS: HEMATOCRIT 25.9 % (37.0-47.0); MCV 95.9 FL (81-99); MPV 11.2 FL (7.4-10.4); RBC 2.7 XMIL (4.2-5.4)
[2017-08-02 04:59] LABS: MAGNESIUM 2.4 mg/dL (1.5-2.7)
[2017-08-02 05:01] LABS: AGAP 15; ALBUMIN 2.1 g/dL (3.5-5.0); ALKALINE PHOSPHATASE 92 U/L (32-104); BUN 25 mg/dL (8-22); CALCIUM 8.1 mg/dL (8.8-10.2); CHLORIDE 91 mmol/L (98-107); COSMO 282; POTASSIUM 4.6 mmol/L (3.5-5.1); SODIUM 138 mmol/L (136-145); TCO2 32 mmol/L (25-35); TOTAL BILIRUBIN 0.56 mg/dL (0.20-1.00)
[2017-08-02 05:24] LABS: GOT 69 U/L (10-30); GPT 66 U/L (10-36)
[2017-08-02] MEDS: DIFLUCAN 400 MG/NS 400 MG/200 ML IVPB IV SCH (05:48)
[2017-08-02 06:36] LABS: HEMOGLOBIN 7.5 g/dL (12.0-16.0); MCH 29.2 PG (27-31)
[2017-08-02 06:37] LABS: MCHC 30.1 g/dL (33-37)
[2017-08-02] MEDS: MUCOMYST 20% INH SCH ×2 (07:30→19:27)
[2017-08-02] MEDS: NS 1,000 ML IV SCH (08:45)
[2017-08-02] MEDS ORDERED: LASIX IV ONE (09:02)
[2017-08-02] MEDS: LOVENOX SUBQ SCH (10:01)
[2017-08-02] MEDS ORDERED: LASIX ONE (10:08)
[2017-08-02] MEDS ORDERED: DULCOLAX PR ONE (12:26)
[2017-08-02] MEDS: LACTULOSE PO SCH (13:46)
[2017-08-02] MEDS: PROTONIX IV SCH (13:46)
[2017-08-02 14:51] LABS: HEMATOCRIT 28.8 % (37.0-47.0); HEMOGLOBIN 10.8 g/dL (12.0-16.0)
[2017-08-02] MEDS: OFIRMEV 1000 MG/ISOTONIC SOLN 1,000 MG/100 ML BOTTLE IV PRN (16:36)
[2017-08-02] MEDS: INVANZ 1 GM/NS 1 GM/50 ML IVPB IV SCH (19:51)
[2017-08-02] MEDS: NS 500 ML IV SCH (19:51)
[2017-08-03] MEDS: DIPRIVAN 1% 1,000 MG/100 ML BOTTLE IV SCH ×14 (00:03→23:57)
[2017-08-03] MEDS: NS 1,000 ML IV SCH ×3 (03:19→23:57)
[2017-08-03] MEDS: DUONEB (A & A) INH SCH ×6 (03:30→23:05)
[2017-08-03 04:25] LABS: ALLEN TEST YES; BE 11.3 mmoll (-3.0-3.0); BLOOD TYPE ARTERIAL; DRAW SITE R RADIAL; METHB 2.8 % (0.0-1.5); O2(CT) 16.9 mL/dL (15.0-23.0); PCO2(98.6) 46 mmHg (35-45); PO2(98.6) 92 mmHg (60-100); SAMPLE BLOOD; SAO2 100.1 % (95.0-100.0); SRATE 12 BPM; THB 12.7 g/dL (11.5-17.4); TVOL 400 mL
[2017-08-03 04:26] LABS: MODALITY VENTILATOR
[2017-08-03 05:02] LABS: HEMATOCRIT 27.5 % (37.0-47.0); HEMOGLOBIN 10.2 g/dL (12.0-16.0); MCH 35.9 PG (27-31); MCHC 37.1 g/dL (33-37); MCV 96.8 FL (81-99); MPV 11.3 FL (7.4-10.4); RBC 2.84 XMIL (4.2-5.4)
[2017-08-03] MEDS: DIFLUCAN 400 MG/NS 400 MG/200 ML IVPB IV SCH (05:24)
[2017-08-03 05:29] LABS: AGAP 16; ALBUMIN 2.2 g/dL (3.5-5.0); ALKALINE PHOSPHATASE 93 U/L (32-104); BUN 17 mg/dL (8-22); CALCIUM 8.5 mg/dL (8.8-10.2); CHLORIDE 94 mmol/L (98-107); COSMO 281; SODIUM 139 mmol/L (136-145); TCO2 29 mmol/L (25-35); TOTAL BILIRUBIN 0.49 mg/dL (0.20-1.00); TOTAL PROTEIN 6.8 g/dL (6.3-8.3)
[2017-08-03 05:40] LABS: GOT 41 U/L (10-30); GPT 55 U/L (10-36)
[2017-08-03] MEDS: MUCOMYST 20% INH SCH ×2 (07:52→19:00)
[2017-08-03] MEDS: LACTULOSE PO SCH (08:31)
[2017-08-03] MEDS: LOVENOX SUBQ SCH (08:31)
[2017-08-03] MEDS: LASIX IV SCH ×2 (08:33→19:32)
[2017-08-03] MEDS ORDERED: POTASSIUM CHLORIDE 40 MEQ/SWI 40 MEQ/100 ML IVPB IV ONE (09:14)
[2017-08-03] MEDS: PROTONIX IV SCH (12:48)
[2017-08-03] MEDS: NS 500 ML IV SCH (19:32)
[2017-08-03] MEDS: INVANZ 1 GM/NS 1 GM/50 ML IVPB IV SCH (19:33)
[2017-08-04] MEDS: DIPRIVAN 1% 1,000 MG/100 ML BOTTLE IV SCH ×13 (01:45→22:37)
[2017-08-04] MEDS: DUONEB (A & A) INH SCH ×6 (03:00→23:15)
[2017-08-04 04:26] LABS: ALLEN TEST YES; BE 12.5 mmoll (-3.0-3.0); BLOOD TYPE ARTERIAL; DRAW SITE R RADIAL; METHB 2.5 % (0.0-1.5); O2(CT) 11.3 mL/dL (15.0-23.0); PCO2(98.6) 40 mmHg (35-45); PO2(98.6) 114 mmHg (60-100); SAMPLE BLOOD; SAO2 99.7 % (95.0-100.0); SRATE 12 BPM; THB 8.3 g/dL (11.5-17.4); TVOL 400 mL
[2017-08-04 04:28] LABS: MODALITY VENTILATOR; pH(98.6) 7.56 (7.35-7.45)
[2017-08-04 04:35] LABS: HEMATOCRIT 25.4 % (37.0-47.0); HEMOGLOBIN 8.9 g/dL (12.0-16.0); MCH 33.2 PG (27-31); MCV 94.8 FL (81-99); MPV 10.5 FL (7.4-10.4); RBC 2.68 XMIL (4.2-5.4)
[2017-08-04 05:03] LABS: AGAP 13; ALBUMIN 2.4 g/dL (3.5-5.0); ALKALINE PHOSPHATASE 79 U/L (32-104); BUN 17 mg/dL (8-22); CALCIUM 7.9 mg/dL (8.8-10.2); CHLORIDE 97 mmol/L (98-107); COSMO 280; POTASSIUM 3.3 mmol/L (3.5-5.1); SODIUM 139 mmol/L (136-145); TCO2 29 mmol/L (25-35); TOTAL BILIRUBIN 0.38 mg/dL (0.20-1.00); TOTAL PROTEIN 6.4 g/dL (6.3-8.3)
[2017-08-04] MEDS: DIFLUCAN 400 MG/NS 400 MG/200 ML IVPB IV SCH (05:40)
[2017-08-04 06:20] LABS: GOT 32 U/L (10-30); GPT 38 U/L (10-36)
[2017-08-04] MEDS ORDERED: POTASSIUM CHLORIDE 40 MEQ/SWI 40 MEQ/100 ML IVPB IV ONE (07:56)
[2017-08-04] MEDS: MUCOMYST 20% INH SCH ×2 (08:06→19:20)
[2017-08-04] MEDS: LOVENOX SUBQ SCH (08:44)
[2017-08-04] MEDS: LASIX IV SCH ×2 (08:44→19:41)
[2017-08-04] MEDS: ATIVAN IV PRN (09:47)
[2017-08-04 10:23] LABS: ALLEN TEST YES; BE 11.6 mmoll (-3.0-3.0); BLOOD TYPE ARTERIAL; DRAW SITE R RADIAL; O2(CT) 14.5 mL/dL (15.0-23.0); PO2(98.6) 87 mmHg (60-100); SAMPLE BLOOD; SAO2 97.9 % (95.0-100.0); THB 10.9 g/dL (11.5-17.4); pH(98.6) 7.43 (7.35-7.45)
[2017-08-04 10:26] LABS: MODALITY VENTILATOR; PCO2(98.6) 57 mmHg (35-45)
[2017-08-04] MEDS: PROTONIX IV SCH (13:33)
[2017-08-04] MEDS: NS 500 ML IV SCH (18:25)
[2017-08-04] MEDS: INVANZ 1 GM/NS 1 GM/50 ML IVPB IV SCH (19:41)
[2017-08-04] MEDS: NS 1,000 ML IV SCH (19:42)
[2017-08-04] MEDS: DILAUDID IV PRN (20:58)
[2017-08-05] MEDS: DIPRIVAN 1% 1,000 MG/100 ML BOTTLE IV SCH ×6 (00:06→08:08)
[2017-08-05] MEDS: DUONEB (A & A) INH SCH ×6 (03:15→23:09)
[2017-08-05] MEDS: DILAUDID IV PRN ×3 (03:15→22:33)
[2017-08-05 03:59] LABS: MCH 31.9 PG (27-31); MCHC 33.3 g/dL (33-37); MCV 95.7 FL (81-99); MPV 10.1 FL (7.4-10.4); RBC 2.82 XMIL (4.2-5.4)
[2017-08-05 04:20] LABS: AGAP 16; ALBUMIN 2.7 g/dL (3.5-5.0); ALKALINE PHOSPHATASE 96 U/L (32-104); BUN 19 mg/dL (8-22); CALCIUM 8.6 mg/dL (8.8-10.2); CHLORIDE 96 mmol/L (98-107); COSMO 288; POTASSIUM 3.9 mmol/L (3.5-5.1); SODIUM 143 mmol/L (136-145); TCO2 31 mmol/L (25-35); TOTAL BILIRUBIN 0.44 mg/dL (0.20-1.00); TOTAL PROTEIN 7.1 g/dL (6.3-8.3)
[2017-08-05 04:28] LABS: GOT 62 U/L (10-30); GPT 50 U/L (10-36)
[2017-08-05 04:42] LABS: ALLEN TEST YES; BLOOD TYPE ARTERIAL; DRAW SITE R RADIAL; METHB 1.2 % (0.0-1.5); O2(CT) 10.5 mL/dL (15.0-23.0); PCO2(98.6) 48 mmHg (35-45); PO2(98.6) 112 mmHg (60-100); SAMPLE BLOOD; SRATE 12 BPM; THB 7.6 g/dL (11.5-17.4); TVOL 400 mL; pH(98.6) 7.49 (7.35-7.45)
[2017-08-05 04:43] LABS: MODALITY VENTILATOR
[2017-08-05] MEDS: DIFLUCAN 400 MG/NS 400 MG/200 ML IVPB IV SCH (05:24)
[2017-08-05] MEDS: LASIX IV SCH ×2 (07:56→20:26)
[2017-08-05] MEDS: MUCOMYST 20% INH SCH ×2 (08:27→19:28)
[2017-08-05] MEDS: LOVENOX SUBQ SCH (08:53)
[2017-08-05] MEDS: ATIVAN IV PRN (09:23)
[2017-08-05 10:33] LABS: ALLEN TEST YES; BE 14.5 mmoll (-3.0-3.0); BLOOD TYPE ARTERIAL; DRAW SITE R RADIAL; METHB 1.3 % (0.0-1.5); MODALITY VENTILATOR; O2(CT) 14.8 mL/dL (15.0-23.0); PCO2(98.6) 44 mmHg (35-45); PO2(98.6) 66 mmHg (60-100); SAMPLE BLOOD; SAO2 95.9 % (95.0-100.0); THB 11.3 g/dL (11.5-17.4); pH(98.6) 7.55 (7.35-7.45)
[2017-08-05] MEDS: PROTONIX IV SCH (13:08)
[2017-08-05] MEDS: NS 1,000 ML IV SCH (18:21)
[2017-08-05] MEDS: NS 500 ML IV SCH (18:25)
[2017-08-05] MEDS: INVANZ 1 GM/NS 1 GM/50 ML IVPB IV SCH (19:31)
[2017-08-05] MEDS: OFIRMEV 1000 MG/ISOTONIC SOLN 1,000 MG/100 ML BOTTLE IV PRN (23:31)
[2017-08-06] MEDS: ATIVAN IV PRN ×4 (01:01→20:09)
[2017-08-06] MEDS: DUONEB (A & A) INH SCH ×6 (03:48→22:56)
[2017-08-06 05:01] LABS: ALLEN TEST YES; BE 11.7 mmoll (-3.0-3.0); BLOOD TYPE ARTERIAL; DRAW SITE R RADIAL; METHB 1.3 % (0.0-1.5); O2(CT) 18.6 mL/dL (15.0-23.0); PO2(98.6) 104 mmHg (60-100); SAMPLE BLOOD; SAO2 97.7 % (95.0-100.0); THB 13.8 g/dL (11.5-17.4); pH(98.6) 7.46 (7.35-7.45)
[2017-08-06 05:02] LABS: MODALITY BI PAP; PCO2(98.6) 53 mmHg (35-45)
[2017-08-06 05:18] LABS: HEMATOCRIT 30.2 % (37.0-47.0); HEMOGLOBIN 9.4 g/dL (12.0-16.0); MCH 30.5 PG (27-31); MCHC 31.1 g/dL (33-37); MCV 98.1 FL (81-99); RBC 3.08 XMIL (4.2-5.4)
[2017-08-06 05:35] LABS: AGAP 21; ALBUMIN 3.3 g/dL (3.5-5.0); ALKALINE PHOSPHATASE 92 U/L (32-104); BUN 23 mg/dL (8-22); CALCIUM 9.7 mg/dL (8.8-10.2); CHLORIDE 98 mmol/L (98-107); COSMO 298; GOT 36 U/L (10-30); GPT 54 U/L (10-36); POTASSIUM 3.5 mmol/L (3.5-5.1); SODIUM 148 mmol/L (136-145); TCO2 29 mmol/L (25-35); TOTAL BILIRUBIN 0.53 mg/dL (0.20-1.00); TOTAL PROTEIN 7.7 g/dL (6.3-8.3)
[2017-08-06] MEDS: DIFLUCAN 400 MG/NS 400 MG/200 ML IVPB IV SCH (05:53)
[2017-08-06] MEDS: MUCOMYST 20% INH SCH ×2 (07:38→19:30)
[2017-08-06] MEDS: D5W 1,000 ML IV SCH (07:43)
[2017-08-06] MEDS: LASIX IV SCH ×2 (07:43→17:56)
[2017-08-06] MEDS: LOVENOX SUBQ SCH (08:54)
[2017-08-06] MEDS: DILAUDID IV PRN ×2 (12:00→23:02)
[2017-08-06] MEDS ORDERED: NS 250 ML ONE (13:12)
[2017-08-06 13:56] LABS: INR 1.12; PROTIME 11.9 Seconds (9.2-11.7)
[2017-08-06] MEDS: PROTONIX IV SCH (14:18)
[2017-08-06] MEDS: NS 500 ML IV SCH (14:18)
[2017-08-06] MEDS: SODIUM CHLORIDE 0.9% INJ SCH (14:18)
[2017-08-06] MEDS: INVANZ 1 GM/NS 1 GM/50 ML IVPB IV SCH (19:14)
[2017-08-07] MEDS: DUONEB (A & A) INH SCH ×6 (03:06→22:30)
[2017-08-07] MEDS: D5W 1,000 ML IV SCH ×2 (04:22→21:11)
[2017-08-07 05:00] LABS: ALLEN TEST YES; BE 10.6 mmoll (-3.0-3.0); BLOOD TYPE ARTERIAL; DRAW SITE L RADIAL; METHB 1.4 % (0.0-1.5); PO2(98.6) 113 mmHg (60-100); SAMPLE BLOOD; SAO2 98.6 % (95.0-100.0); SRATE 12 BPM; THB 18.5 g/dL (11.5-17.4); pH(98.6) 7.46 (7.35-7.45)
[2017-08-07 05:02] LABS: MODALITY BI PAP; PCO2(98.6) 52 mmHg (35-45)
[2017-08-07] MEDS: DIFLUCAN 400 MG/NS 400 MG/200 ML IVPB IV SCH (05:38)
[2017-08-07] MEDS: LASIX IV SCH (05:38)
[2017-08-07 06:18] LABS: HEMATOCRIT 32.9 % (37.0-47.0); HEMOGLOBIN 10.2 g/dL (12.0-16.0); MCH 30.4 PG (27-31); MCV 97.9 FL (81-99); MPV 10.3 FL (7.4-10.4); RBC 3.36 XMIL (4.2-5.4)
[2017-08-07 06:32] LABS: AGAP 17; ALBUMIN 3.7 g/dL (3.5-5.0); ALKALINE PHOSPHATASE 93 U/L (32-104); BUN 30 mg/dL (8-22); CALCIUM 9.7 mg/dL (8.8-10.2); CHLORIDE 96 mmol/L (98-107); COSMO 297; GOT 55 U/L (10-30); GPT 62 U/L (10-36); POTASSIUM 3.2 mmol/L (3.5-5.1); SODIUM 146 mmol/L (136-145); TCO2 33 mmol/L (25-35); TOTAL BILIRUBIN 0.77 mg/dL (0.20-1.00); TOTAL PROTEIN 8.2 g/dL (6.3-8.3)
[2017-08-07] MEDS: MUCOMYST 20% INH SCH ×2 (07:48→19:30)
[2017-08-07] MEDS: LOVENOX SUBQ SCH (09:36)
[2017-08-07] MEDS: SODIUM CHLORIDE 0.9% INJ SCH (13:15)
[2017-08-07] MEDS ORDERED: NS 500 ML ONE (13:15)
[2017-08-07] MEDS: PROTONIX IV SCH (13:15)
[2017-08-07] MEDS ORDERED: POTASSIUM CHLORIDE 40 MEQ/SWI 40 MEQ/100 ML IVPB IV ONE (14:58)
[2017-08-07] MEDS: INVANZ 1 GM/NS 1 GM/50 ML IVPB IV SCH (21:08)
[2017-08-07] MEDS: DILAUDID IV PRN (22:48)
[2017-08-08] MEDS: DILAUDID IV PRN (02:53)
[2017-08-08] MEDS: DUONEB (A & A) INH SCH ×6 (03:04→23:51)
[2017-08-08] MEDS: ATIVAN IV PRN (04:12)
[2017-08-08 04:14] LABS: ALLEN TEST YES; BE 9.6 mmoll (-3.0-3.0); BLOOD TYPE ARTERIAL; DRAW SITE R RADIAL; O2(CT) 15.1 mL/dL (15.0-23.0); PCO2(98.6) 49 mmHg (35-45); PO2(98.6) 99 mmHg (60-100); SAMPLE BLOOD; SAO2 98.4 % (95.0-100.0); THB 11.1 g/dL (11.5-17.4); pH(98.6) 7.46 (7.35-7.45)
[2017-08-08 04:15] LABS: MODALITY COOL AEROSOL
[2017-08-08 05:23] LABS: HEMATOCRIT 32.7 % (37.0-47.0); HEMOGLOBIN 10.3 g/dL (12.0-16.0); MCH 29.9 PG (27-31); MCHC 31.5 g/dL (33-37); MCV 95.1 FL (81-99); MPV 10.5 FL (7.4-10.4); RBC 3.44 XMIL (4.2-5.4)
[2017-08-08] MEDS: DIFLUCAN 400 MG/NS 400 MG/200 ML IVPB IV SCH (05:46)
[2017-08-08 05:47] LABS: AGAP 17; ALBUMIN 3.3 g/dL (3.5-5.0); ALKALINE PHOSPHATASE 102 U/L (32-104); BUN 27 mg/dL (8-22); CHLORIDE 98 mmol/L (98-107); COSMO 290; GOT 209 U/L (10-30); GPT 206 U/L (10-36); POTASSIUM 4.1 mmol/L (3.5-5.1); SODIUM 143 mmol/L (136-145); TCO2 28 mmol/L (25-35); TOTAL BILIRUBIN 1.05 mg/dL (0.20-1.00)
[2017-08-08 06:03] LABS: MAGNESIUM 2.5 mg/dL (1.5-2.7)
[2017-08-08] MEDS: MUCOMYST 20% INH SCH ×2 (07:24→19:55)
[2017-08-08] MEDS: LOVENOX SUBQ SCH (09:22)
[2017-08-08] MEDS: D5W 1,000 ML IV SCH (09:22)
[2017-08-08] MEDS: PROTONIX IV SCH (13:46)
[2017-08-08] MEDS: SODIUM CHLORIDE 0.9% INJ SCH (13:46)
[2017-08-08] MEDS: MYCAMINE 100 MG in NS 100 ML IV SCH (19:49)
[2017-08-08] MEDS: INVANZ 1 GM/NS 1 GM/50 ML IVPB IV SCH (21:25)
[2017-08-09] MEDS: D5W 1,000 ML IV SCH (01:07)
[2017-08-09] MEDS: DUONEB (A & A) INH SCH ×6 (03:33→23:11)
[2017-08-09 04:48] LABS: ALLEN TEST YES; BE 6.4 mmoll (-3.0-3.0); BLOOD TYPE ARTERIAL; DRAW SITE R RADIAL; METHB 0.9 % (0.0-1.5); O2(CT) 14.3 mL/dL (15.0-23.0); PCO2(98.6) 41 mmHg (35-45); PO2(98.6) 98 mmHg (60-100); SAMPLE BLOOD; SAO2 98.2 % (95.0-100.0); THB 10.5 g/dL (11.5-17.4); pH(98.6) 7.48 (7.35-7.45)
[2017-08-09 04:50] LABS: MODALITY CANNULA
[2017-08-09 05:42] LABS: HEMATOCRIT 33.3 % (37.0-47.0); HEMOGLOBIN 10.4 g/dL (12.0-16.0); MCH 29.4 PG (27-31); MCHC 31.2 g/dL (33-37); MCV 94.1 FL (81-99); MPV 10.2 FL (7.4-10.4); RBC 3.54 XMIL (4.2-5.4)
[2017-08-09 06:03] LABS: AGAP 20; ALBUMIN 3.3 g/dL (3.5-5.0); ALKALINE PHOSPHATASE 100 U/L (32-104); BUN 22 mg/dL (8-22); CALCIUM 9.7 mg/dL (8.8-10.2); CHLORIDE 95 mmol/L (98-107); COSMO 283; GOT 210 U/L (10-30); GPT 282 U/L (10-36); POTASSIUM 4.3 mmol/L (3.5-5.1); SODIUM 140 mmol/L (136-145); TCO2 25 mmol/L (25-35); TOTAL BILIRUBIN 0.94 mg/dL (0.20-1.00)
[2017-08-09] MEDS: MUCOMYST 20% INH SCH ×2 (07:44→19:00)
[2017-08-09] MEDS: LOVENOX SUBQ SCH (09:13)
[2017-08-09 10:47] LABS: HEPATITIS PROFILE ACUTE SEE COMMENTS
[2017-08-09] MEDS: CLINIMIX E 4.25%-5% SOLUTION 1,000 ML IV SCH ×2 (11:17→23:34)
[2017-08-09] MEDS: SODIUM CHLORIDE 0.9% INJ SCH (12:26)
[2017-08-09] MEDS: PROTONIX IV SCH (12:26)
[2017-08-09] MEDS: MYCAMINE 100 MG in NS 100 ML IV SCH (18:00)
[2017-08-09] MEDS: INVANZ 1 GM/NS 1 GM/50 ML IVPB IV SCH (20:48)
[2017-08-10] MEDS: DUONEB (A & A) INH SCH ×6 (03:34→23:01)
[2017-08-10 05:48] LABS: HEMATOCRIT 34.5 % (37.0-47.0); HEMOGLOBIN 10.8 g/dL (12.0-16.0); MCH 29.3 PG (27-31); MCHC 31.3 g/dL (33-37); MCV 93.8 FL (81-99); MPV 10.3 FL (7.4-10.4); RBC 3.68 XMIL (4.2-5.4)
[2017-08-10 06:09] LABS: AGAP 9; ALBUMIN 3.6 g/dL (3.5-5.0); ALKALINE PHOSPHATASE 93 U/L (32-104); BUN 19 mg/dL (8-22); CALCIUM 10.4 mg/dL (8.8-10.2); CHLORIDE 99 mmol/L (98-107); COSMO 278; GOT 90 U/L (10-30); GPT 219 U/L (10-36); POTASSIUM 4.4 mmol/L (3.5-5.1); SODIUM 138 mmol/L (136-145); TCO2 30 mmol/L (25-35); TOTAL BILIRUBIN 0.66 mg/dL (0.20-1.00); TOTAL PROTEIN 7.6 g/dL (6.3-8.3)
[2017-08-10] MEDS: MUCOMYST 20% INH SCH ×2 (07:31→19:18)
[2017-08-10] MEDS: LOVENOX SUBQ SCH (09:16)
[2017-08-10] MEDS ORDERED: LASIX IV ONE (09:52)
[2017-08-10] MEDS: PROTONIX IV SCH (13:15)
[2017-08-10] MEDS: SODIUM CHLORIDE 0.9% INJ SCH (13:15)
[2017-08-10] MEDS: CLINIMIX E 4.25%-5% SOLUTION 1,000 ML IV SCH (13:15)
[2017-08-10] MEDS: MYCAMINE 100 MG in NS 100 ML IV SCH (18:10)
[2017-08-10] MEDS: INVANZ 1 GM/NS 1 GM/50 ML IVPB IV SCH (20:55)
[2017-08-11] MEDS: DUONEB (A & A) INH SCH ×6 (03:34→23:15)
[2017-08-11] MEDS: CLINIMIX E 4.25%-5% SOLUTION 1,000 ML IV SCH ×2 (03:52→16:08)
[2017-08-11 05:35] LABS: HEMATOCRIT 36.3 % (37.0-47.0); HEMOGLOBIN 11.6 g/dL (12.0-16.0); MCH 29.7 PG (27-31); MCV 93.1 FL (81-99); RBC 3.9 XMIL (4.2-5.4)
[2017-08-11 05:53] LABS: AGAP 12; ALBUMIN 3.9 g/dL (3.5-5.0); ALKALINE PHOSPHATASE 94 U/L (32-104); BUN 21 mg/dL (8-22); CALCIUM 9.6 mg/dL (8.8-10.2); CHLORIDE 97 mmol/L (98-107); COSMO 272; GOT 63 U/L (10-30); GPT 177 U/L (10-36); POTASSIUM 4.5 mmol/L (3.5-5.1); SODIUM 134 mmol/L (136-145); TCO2 25 mmol/L (25-35); TOTAL BILIRUBIN 0.58 mg/dL (0.20-1.00); TOTAL PROTEIN 7.9 g/dL (6.3-8.3)
[2017-08-11] MEDS: MUCOMYST 20% INH SCH ×2 (08:12→20:06)
[2017-08-11] MEDS: LOVENOX SUBQ SCH (09:02)
[2017-08-11] MEDS: PROTONIX IV SCH (14:25)
[2017-08-11] MEDS: SODIUM CHLORIDE 0.9% INJ SCH (14:25)
[2017-08-11] MEDS ORDERED: NS 2,000 ML ONE (18:01)
[2017-08-11] MEDS: MYCAMINE 100 MG in NS 100 ML IV SCH (18:08)
[2017-08-11] MEDS: INVANZ 1 GM/NS 1 GM/50 ML IVPB IV SCH (20:55)
[2017-08-12] MEDS: DUONEB (A & A) INH SCH ×6 (03:28→22:46)
[2017-08-12 04:33] LABS: MANUAL DIFF NEEDED? NO
[2017-08-12 04:38] LABS: BASO% 1.2 % (0.0-0.8); EOS# 0.74 X1000 (0.0-0.7); EOS% 6.1 % (0.0-10.0); HEMATOCRIT 36.4 % (37.0-47.0); HEMOGLOBIN 11.4 g/dL (12.0-16.0); IMM GRAN# 0.31 X1000 (0.0-0.04); IMM GRAN% 2.5 % (0.0-0.5); LYMPH# 3.74 X1000 (1.2-3.4); LYMPH% 30.7 % (20.5-51.1); MCH 29.4 PG (27-31); MCHC 31.3 g/dL (33-37); MCV 93.8 FL (81-99); MONO# 1.35 X1000 (0.11-0.59); MONO% 11.1 % (1.7-9.3); MPV 10.4 FL (7.4-10.4); NEUT% 48.4 % (42.2-75.2); PLT 526 X1000 (130-400); RBC 3.88 XMIL (4.2-5.4)
[2017-08-12 05:02] LABS: AGAP 11; ALBUMIN 3.8 g/dL (3.5-5.0); ALKALINE PHOSPHATASE 90 U/L (32-104); BUN 21 mg/dL (8-22); CALCIUM 10.3 mg/dL (8.8-10.2); CHLORIDE 98 mmol/L (98-107); COSMO 273; GOT 59 U/L (10-30); GPT 148 U/L (10-36); POTASSIUM 4.6 mmol/L (3.5-5.1); SODIUM 135 mmol/L (136-145); TCO2 26 mmol/L (25-35); TOTAL BILIRUBIN 0.59 mg/dL (0.20-1.00); TOTAL PROTEIN 7.5 g/dL (6.3-8.3)
[2017-08-12] MEDS: CLINIMIX E 4.25%-5% SOLUTION 1,000 ML IV SCH ×2 (05:04→19:40)
[2017-08-12] MEDS: LOVENOX SUBQ SCH (08:42)
[2017-08-12] MEDS: MUCOMYST 20% INH SCH ×2 (08:43→20:21)
[2017-08-12] MEDS: PROTONIX IV SCH (13:55)
[2017-08-12] MEDS: SODIUM CHLORIDE 0.9% INJ SCH (13:55)
[2017-08-13] MEDS: DUONEB (A & A) INH SCH ×5 (04:06→19:53)
[2017-08-13 06:16] LABS: HEMATOCRIT 34.6 % (37.0-47.0); HEMOGLOBIN 11.2 g/dL (12.0-16.0); MCH 30.9 PG (27-31); MCHC 32.4 g/dL (33-37); MCV 95.3 FL (81-99); MPV 10.9 FL (7.4-10.4); RBC 3.63 XMIL (4.2-5.4)
[2017-08-13 06:50] LABS: AGAP 12; BUN 18 mg/dL (8-22); CHLORIDE 96 mmol/L (98-107); COSMO 266; MAGNESIUM 1.8 mg/dL (1.5-2.7); SODIUM 132 mmol/L (136-145); TCO2 24 mmol/L (25-35)
[2017-08-13] MEDS: MUCOMYST 20% INH SCH (07:35)
[2017-08-13] MEDS: LOVENOX SUBQ SCH (09:01)
[2017-08-13] MEDS: CLINIMIX E 4.25%-5% SOLUTION 1,000 ML IV SCH (09:01)
[2017-08-13] MEDS: SODIUM CHLORIDE 0.9% INJ SCH (14:02)
[2017-08-13] MEDS: PROTONIX IV SCH (14:02)
[2017-08-14] MEDS: DUONEB (A & A) INH SCH ×6 (02:54→22:50)
[2017-08-14] MEDS: LOVENOX SUBQ SCH (09:09)
[2017-08-14] MEDS: PROTONIX IV SCH (12:10)
[2017-08-15] MEDS: DUONEB (A & A) INH SCH ×6 (03:10→23:07)
[2017-08-15] MEDS: PHENERGAN IV PRN ×2 (03:45→23:05)
[2017-08-15 06:53] LABS: HEMOGLOBIN 12.1 g/dL (12.0-16.0); MCH 31.2 PG (27-31); MCHC 32.7 g/dL (33-37); MCV 95.4 FL (81-99); MPV 11.2 FL (7.4-10.4); RBC 3.88 XMIL (4.2-5.4)
[2017-08-15 07:18] LABS: AGAP 16; BUN 14 mg/dL (8-22); CALCIUM 10.7 mg/dL (8.8-10.2); CHLORIDE 100 mmol/L (98-107); COSMO 280; MAGNESIUM 1.9 mg/dL (1.5-2.7); POTASSIUM 4.3 mmol/L (3.5-5.1); SODIUM 140 mmol/L (136-145); TCO2 24 mmol/L (25-35)
[2017-08-15] MEDS: LOVENOX SUBQ SCH (09:46)
[2017-08-15] MEDS ORDERED: DIFLUCAN PO ONE (13:12)
[2017-08-15] MEDS: SODIUM CHLORIDE 0.9% INJ SCH (13:29)
[2017-08-15] MEDS: PROTONIX IV SCH (13:29)
[2017-08-16] MEDS: DUONEB (A & A) INH SCH ×6 (03:41→22:45)
[2017-08-16] MEDS: LOVENOX SUBQ SCH (10:07)
[2017-08-16] MEDS: SODIUM CHLORIDE 0.9% INJ SCH (16:06)
[2017-08-16] MEDS: PROTONIX IV SCH (16:06)
[2017-08-16] MEDS ORDERED: ULTRAM PO ONE (23:19)
[2017-08-17] MEDS: DUONEB (A & A) INH SCH ×6 (02:55→23:25)
[2017-08-17] MEDS: LOVENOX SUBQ SCH (08:31)
[2017-08-17] MEDS: PROTONIX IV SCH (14:00)
[2017-08-17] MEDS: SODIUM CHLORIDE 0.9% INJ SCH (16:37)
[2017-08-17] MEDS: DIFLUCAN PO SCH (18:30)
[2017-08-18] MEDS: DUONEB (A & A) INH SCH ×6 (02:35→22:59)
[2017-08-18] MEDS: PRILOSEC PO SCH (06:21)
[2017-08-18] MEDS: DIFLUCAN PO SCH (11:09)
[2017-08-18] MEDS: ULTRAM PO PRN ×2 (11:10→18:56)
[2017-08-18] MEDS: LOVENOX SUBQ SCH ×2 (11:10→11:12)
[2017-08-19] MEDS: DUONEB (A & A) INH SCH ×3 (03:06→10:53)
[2017-08-19] MEDS: PRILOSEC PO SCH (06:27)
[2017-08-19] MEDS: DIFLUCAN PO SCH (08:19)
[2017-08-19] MEDS: LOVENOX SUBQ SCH ×2 (08:19→08:21)
[2017-08-19 12:11] VITALS: BP 129/85
== END 2017-08-19 14:45 | disposition home or self-care (01) ==
LOC: P.ED 00:26 → ICU 00:27 → SUATTDRO 00:27 → 4N 08-14 03:02
PROVIDERS: ATTEND Internal Medicine

== ENCOUNTER 2018-12-24 08:54 | Inpatient (IN) ==
[2018-12-24 09:31] LABS: BASO# 0.05 X1000 (0.0-0.2); BASO% 0.4 % (0.0-0.8); EOS# 0.17 X1000 (0.0-0.7); EOS% 1.3 % (0.0-10.0); HEMATOCRIT 38.2 % (37.0-47.0); HEMOGLOBIN 12.2 g/dL (12.0-16.0); IMM GRAN# 0.05 X1000 (0.0-0.04); IMM GRAN% 0.4 % (0.0-0.5); LYMPH# 3.13 X1000 (1.2-3.4); LYMPH% 23.6 % (20.5-51.1); MCH 28.4 PG (27-31); MCHC 31.9 g/dL (33-37); MCV 88.8 FL (81-99); MONO# 0.95 X1000 (0.11-0.59); MONO% 7.1 % (1.7-9.3); MPV 10.1 FL (7.4-10.4); NEUT# 8.94 X1000 (1.4-6.5); NEUT% 67.2 % (42.2-75.2); PLT 418 X1000 (130-400); RDW 15.4 % (11.5-14.5); WBC 13.29 X1000 (4.8-10.8)
[2018-12-24] MEDS ORDERED: NS 1,000 ML IV ONE ×2 (09:31→14:02)
[2018-12-24] MEDS ORDERED: ZOFRAN IV ONE (09:31)
[2018-12-24] MEDS ORDERED: LOMOTIL PO ONE (09:32)
[2018-12-24] MEDS ORDERED: TORADOL IV ONE (09:34)
[2018-12-24 09:35] LABS: BILIRUBIN URINE NEGATIVE (NEGATIVE); BLOOD URINE 1+ (NEGATIVE); CLARITY SL. CLOUDY (CLEAR); COLOR YELLOW; GLUCOSE URINE NEGATIVE (NEGATIVE); KETONE URINE NEGATIVE (NEGATIVE); LEUKOCYTES URINE 2+ (NEGATIVE); NITRITE URINE NEGATIVE (NEGATIVE); PROTEIN URINE 1+(30 mg/dL) mg/dL (NEGATIVE); SP GRAVITY URINE 1.005; UROBILINOGEN URINE NORMAL
[2018-12-24] MEDS ORDERED: PHENERGAN ONE (09:52)
[2018-12-24 09:53] LABS: URINE BACTERIA 1+ /HFP; URINE EPITHELIAL CELLS >10 /HPF (<10); URINE SOURCE CLEAN CATCH; URINE WBC TNTC /HPF (<10)
[2018-12-24] MEDS ORDERED: SODIUM CHLORIDE 0.9% INJ ONE (09:58)
[2018-12-24] MEDS ORDERED: PHENERGAN IV ONE (09:58)
[2018-12-24 10:05] LABS: CHLORIDE 98 mmol/L (98-107); SODIUM 138 mmol/L (136-145)
[2018-12-24 10:06] LABS: AGAP 14; ALBUMIN 3.5 g/dL (3.5-5.0); ALKALINE PHOSPHATASE 117 U/L (32-104); BUN 7 mg/dL (8-22); CALCIUM 9.3 mg/dL (8.8-10.2); COSMO 275; CREATININE 0.7 mg/dL (0.5-0.9); GLUCOSE 125 mg/dL (70-104); GOT 17 U/L (10-30); GPT 27 U/L (10-36); TCO2 26 mmol/L (25-35); TOTAL PROTEIN 7.8 g/dL (6.3-8.3)
--- NOTE | 2018-12-24 12:22 | Diag Imaging Result Doc PS360 ---
CT ABD/PELVIS W/IV CONT ONLY - 12/24/2018 INDICATION: lower abdominal pain COMPARISON: 10/09/2013 FINDINGS: The lung bases are clear and the heart size is normal. There is heterogeneous enhancement of the kidneys bilaterally. This is highly suggestive of pyelonephritis. Other abdominal organs are normal. No bowel obstruction or inflammation. There are bilateral ovarian cysts. These measure up to 1.5 cm on the right and 3.5 cm on the left. There is also an isoenhancing mass at the right side of the uterine fundus. This measures 6.1 cm in diameter. This is round and does distort the endometrial canal, towards the left. Bony structures are intact. IMPRESSION: 1. Bilateral pyelonephritis of the kidneys. 2. Bilateral ovarian cysts. 3. Stable appearing fibroid of the uterus. This exam was performed using automated exposure control, adjustment of mA or kV according to patient size, and/or use of iterative reconstruction technique Electronically signed by Matthew Ann 12/24/2018 12:20 PM
[2018-12-24] MEDS ORDERED: LEVAQUIN 500 MG/D5W 500 MG/100 ML IVPB IV SCH (12:45)
[2018-12-24] MEDS: LOVENOX SUBQ SCH (14:45)
[2018-12-24] MEDS: NS 1,000 ML IV SCH (14:49)
[2018-12-24] MEDS: TORADOL IV SCH ×2 (14:50→20:22)
[2018-12-24] MEDS: AZACTAM 1 GM in NS 50 ML IV SCH ×2 (14:54→22:05)
[2018-12-24] MEDS ORDERED: LEVAQUIN 250 MG/D5W 250 MG/50 ML IVPB IV ONE (15:00)
--- NOTE | 2018-12-24 15:55 | Diag Imaging Result Doc PS360 ---
EXAM: US RENAL 2 (RETROPER) COMPLETE HISTORY: pyelonephritis TECHNIQUE: Renal ultrasound COMPARISON: None. FINDINGS: The right kidney measures 11.6 x 5.0 x 5.0 cm. Normal renal echotexture and cortical thickness. No renal stones or hydronephrosis. No renal mass. The left kidney measures 12.1 x 4.9 x 5.6 cm. Normal renal echotexture and cortical thickness. No renal stone or hydronephrosis. No renal mass. The urinary bladder is distended and is normal. IMPRESSION: Normal renal ultrasound. Electronically signed by Joesph Linares 12/24/2018 3:53 PM
--- NOTE | 2018-12-24 17:41 | HISTORY AND PHYSICAL ---
CHIEF COMPLAINT: Intractable nausea and vomiting and fever. HISTORY OF PRESENT ILLNESS: This is a 38-year-old obese female with a history of chronic low back pain who presented to the emergency department complaining of intractable nausea and vomiting. The patient reports that over the last 7 days she was having nausea and vomiting, approximately 5-7 episodes of vomiting every single day. The patient is unable to keep things down. The patient also reports watery diarrhea 5-6 times per day for the same period of time. The patient was feeling very weak. Reports also burning on urination for the last 5 days, and she was taking some OTC medications to help with the burning. Because of her recurrent nausea and vomiting, fever and chills, and also her inability to keep things down, she decided to come to the emergency department . PAST MEDICAL HISTORY: 1. The patient had been hospitalized for a month for a complicated deep abscess , and she was intubated for a long period of time, being in the ICU and in the hospital for almost a month. 2. 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 3. Heart murmur. Apparently she had mitral valve prolapse, but she is not sure about the diagnosis. 4. 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 5. The patient has peripheral neuropathy secondary to prolonged hospitalization. PAST SURGICAL HISTORY: 1. x3. 2. Exploratory laparoscopy for adhesions 3. Staph infection in the left hip. FAMILY HISTORY: Noncontributory. SOCIAL HISTORY: The patient reports smoking 1 pack per day since she was 16 or 17. The patient lives with . Denies drinking alcohol or using illicit drugs. ALLERGIES: 1. Penicillin. 2. Suprax. 3. Bicitra. 4. Clindamycin. 5. Cefixime. 6. Citric acid. REVIEW OF SYSTEMS: Eleven systems were reviewed, and all symptoms are related to the H P. PHYSICAL EXAMINATION: VITALS SIGNS: Temperature 99.5, heart rate 111, respiratory rate 20, blood pressure 167/75, O2 saturation 95% on room air. GENERAL: This is a 38-year-old female who is obese, lying in bed in no acute distress. HEENT: Head is normocephalic and atraumatic. Mucous membranes are dry. Pupils equal, round, and reactive to light and accommodation. NECK: No JVD. No lymphadenopathy. No bruit. No thyromegaly. CARDIOVASCULAR: S1 and S2 heard. No murmurs, gallops or rubs. Regular rate and rhythm. RESPIRATORY: Wheezing all over both pulmonary elias, mostly within bases. The patient is not using any accessory muscles or having work of breathing. ABDOMEN: Soft, a little bit distended and obese. No organomegaly noted. EXTREMITIES: No clubbing, cyanosis, or edema. Peripheral pulse present in both legs. NEUROLOGIC: The patient is alert and oriented x3. Moves 4 extremities. LABORATORY DATA: White cell count 13.39, hemoglobin 13.2, hematocrit 38.2, platelets 418. Normal BMP. Glucose 125. Urine is dirty. Urine culture, of course, is pending. ASSESSMENT/PLAN: 1. Acute pyelonephritis. I think that is the reason why this patient has nausea and vomiting. She is symptomatic with burning on urination, so at this point we are going to start IV antibiotics, in this case Levaquin and aztreonam, considering her history of allergies. We will provide aggressive fluid resuscitation with 1 liter of normal saline bolus plus 150 mL/hour. Because the patient reports diarrhea, we are going to order stool studies for white cell count, ova and parasites, Clostridium toxin and antigen. Will check the results later on. 2. Dehydration. Will provide IV fluids and will continue to monitor this patient closely. cc: Marck Haywood MD [facility]
--- NOTE | 2018-12-24 18:50 | PROVIDER DOCUMENTATION ---
This chart was entered by Radha Dia Scribe, acting as scribe for Morenita Casas MD. HPI-General Adult - General Chief Complaint: General Adult Stated Complaint: NAUSEA / WEAK Time Seen by Provider: 12/24/18 09:25 Source: patient Allergies/Adverse Reactions: Patient Allergies Allergy/AdvReac Type Severity Reaction Status Date / Time cefixime [From Suprax] Allergy Intermediate RASH Verified 12/24/18 09:25 citric acid * [From Bicitra] Allergy Intermediate VOMITING; Verified 12/24/18 09 :25 RASH clindamycin Allergy Intermediate RASH Verified 12/24/18 09:25 Penicillins Allergy Intermediate HIVES Verified 12/24/18 09:25 sodium citrate [From Bicitra] Allergy Intermediate VOMITING; Verified 12/24/18 09:25 RASH ondansetron Allergy RASH Verified 12/24/18 09:25 [From Zofran (as hydrochloride)] cephalexin monohydrate * AdvReac Intermediate CAUSES Verified 12/24/18 09:25 [From Keflex] YEAST INFECTION Home Medications: Home Medication List Medication Instructions Recorded Confirmed Last Taken Type NK [No Home Medications] 12/24/18 12/24/18 Unknown History - History of Present Illness -Gen Adult Nature of Presenting Problems: 38 yowf presents to the ed with c/o abdominal pain with n/v/d, frequent UTI with some suprapubic tenderness.pt sts onset 1 week Location of Pain/Injury: reports: abdomen Pain Radiation: reports: no radiation Quality of Pain: reports: aching, cramping Severity: reports: mild Onset/Duration: reports: 1 week ago Context/Activities at Onset: reports: light activity Modifying Factors: improves with: nothing. worse with: eating, urinating Associated Symptoms: reports: diarrhea, fever/chills (99.5), nausea, vomiting. denies: back/neck pain, chest pain, cough, dizziness, fatigue, headaches, sinus congestion/drainage, shortness of breath Similar Symptoms Previously?: Yes Recently seen or treated by another doctor?: No Review of Systems - Adult - REVIEW OF SYSTEMS - ADULT Constitutional: reports: see HPI, chills, fever Eyes: denies: blurred vision, double vision Ears, Nose, Mouth & Throat: reports: no symptoms reported Cardiovascular: denies: chest pain, palpitations Respiratory: denies: cough, shortness of breath Gastrointestinal: reports: see HPI, abdominal pain, diarrhea, nausea, vomiting Genitourinary: reports: see HPI, frequent UTI's Musculoskeletal: denies: back pain, neck pain Integumentary: reports: no symptoms reported Neurological: denies: dizziness/vertigo, headache/migraines Psychiatric: reports: no symptoms reported Endocrine: reports: no symptoms reported Hematologic/Lymphatic: reports: no symptoms reported Allergic/Immunologic: reports: no symptoms reported All Other Systems: Reviewed and Negative Past History - Adult - PAST MEDICAL HISTORY-ADULT Review of Records: reports: Old Records Reviewed, Nursing Assessment Review, Medications Reviewed, Social history reviewed & non-contributory. Major Childhood Illnesses: reports: denies history Cardiovascular: reports: murmur Respiratory: reports: asthma Gastrointestinal: reports: GERD, ulcer Obstetrical/Gynecological: reports: denies history Genitourinary: reports: denies history Musculoskeletal: reports: chronic pain Neurological: reports: denies history Psychiatric: reports: denies history Endocrine/Immune: reports: denies history Other Conditions: reports: other (anemia) - PRIOR SURGERIES/PROCEDURES Surgical/Procedure History: reports: BTL, - IMMUNIZATION STATUS Childhood Immunizations: See Nurse Assessment Flu Vaccine: See Nurse Assessment - FAMILY HISTORY Family History: diabetes - SOCIAL HISTORY Smoking: cigarettes, greater than 1 pack/day Provider spent 3-5 mins advising pt. on dangers of tobacco.: Discussed manners to quit use, and f/u contacts for add'l counseling. Substance Use: denies Alcohol Use Frequency: never Living Situation: family Physical Exam-General - PHYSICAL EXAM-ADULT Initial Vital Signs Reviewed: Yes - CONSTITUTIONAL General Appearance: appears well, alert, no apparent distress, obese - EYES Eyes: PERRL/EOMI, pink conjunctivae - HEAD, EARS, NOSE, MOUTH & THROAT HENMT: TMs normal, dental decay. negative: moist mucous membranes (dry) - NECK Neck: full range of motion, supple, normal inspection - RESPIRATORY Respiratory: chest non-tender, lungs clear, normal breath sounds - CARDIOVASCULAR Cardiovascular: normal peripheral pulses, tachycardia (111) - GASTROINTESTINAL (ABDOMEN) Abdominal Exam: normal bowel sounds, soft, tenderness (generalized). negative: guarding, rigid, rebound - LYMPHATIC Lymphatic: no adenopathy - MUSCULOSKELETAL Back Exam: normal inspection Extremity: normal range of motion, non-tender, normal inspection - SKIN Integumentary: normal color, normal turgor, warm/dry - NEUROLOGIC Neurologic: grossly normal, no motor/sensory deficits - PSYCHIATRIC Psych/Mental Status: normal mood/affect, normal thought content, normal thought process, oriented x 3 Progress - PLAN OF CARE/RESULTS Progress/Plan/Lab Results: Vital Signs - 8 hr 12/24/18 08:57 12/24/18 09:10 Temperature 99.5 F Pulse Rate 111 H Pulse Rate [Sitting] 115 H Pulse Rate [Standing] 120 H Pulse Rate [Supine] 106 H Respiratory Rate 20 Blood Pressure 165/77 Blood Pressure [Sitting] 132/82 Blood Pressure [Standing] 139/59 Blood Pressure [Supine] 144/76 O2 Sat by Pulse Oximetry 95 Orders Category Date Time Status CBC WITH ELECTRONIC DIFF [HEME] Stat Lab 12/24/18 09:16 Results COMPREHENSIVE METABOLIC PANEL [CHEM] Stat Lab 12/24/18 09:[address] W/POSS RFLX CULT [URINALYSIS] Stat Lab 12/24/18 09:04 Received Result Diagrams: 12/24/18 09:16 12/24/18 09:16 - REASSESSMENT Reassessment #1 Time Reassessed: 10:58 Status: improving Reassessment Comment: pt is resting in bed Reassessment #2 Time Reassessed: 12:36 Status: unchanged Reassessment Comment: resting iin bed - CONSULTS/PCP/HOSPITALIST Notification #1 *Consult/PCP/Hospitalist*: hospitalist dr monroe Time Discussed: 12:38 Consult Disposition: Admit Departure - Departure Date of Disposition Decision: 12/24/18 Time of Disposition Decision: 12:36 DIAGNOSIS: Tobacco use disorder, Pyelonephritis Disposition: ADMITTED INPATIENT 09 Certified Medical Emergency: Emergent Condition: Stable Referrals and Follow-Ups: None,PCP [Primary Care Provider] - - Critical Care Note This patient required my direct & personal management of CC.: Yes Total Time (mins): 38 Critical Care Statement: This patient required my direct personal management to treat or rule out processes, the absence of which, could potentiallly result in sudden, clinically significant life or limb threatening deterioration. Attestation - Physician/ ADOLPH Attestation Patient care was provided by Advanced Practice Provider:: No The physician spent face to face time with patient:: Yes Advanced Practice Provider documentation review:: Supervising physician onsite and consulted in the evaluation and care of this patient. The physician did have a face to face encounter with the patient. This chart was documented by the indicated scribe, (Radha Dia Scribe) and accurately reflects the services I performed and decisions made by me, Morenita Casas MD, as attested by the provider's signature.
[2018-12-24] MEDS: PHENERGAN IV PRN ×2 (18:51→23:22)
[2018-12-24] MEDS: SODIUM CHLORIDE 0.9% INJ PRN ×2 (18:51→23:22)
[2018-12-25] MEDS: TORADOL IV SCH ×4 (03:03→20:43)
[2018-12-25] MEDS: AZACTAM 1 GM in NS 50 ML IV SCH ×3 (05:23→22:12)
[2018-12-25] MEDS: NS 1,000 ML IV SCH ×5 (05:25→23:45)
[2018-12-25 07:26] LABS: BASO# 0.03 X1000 (0.0-0.2); BASO% 0.2 % (0.0-0.8); EOS# 0.21 X1000 (0.0-0.7); EOS% 1.5 % (0.0-10.0); HEMATOCRIT 35.6 % (37.0-47.0); HEMOGLOBIN 11.3 g/dL (12.0-16.0); IMM GRAN% 0.7 % (0.0-0.5); LYMPH# 3.09 X1000 (1.2-3.4); LYMPH% 22.6 % (20.5-51.1); MCH 28.8 PG (27-31); MCHC 31.7 g/dL (33-37); MCV 90.6 FL (81-99); MONO% 6.6 % (1.7-9.3); NEUT# 9.32 X1000 (1.4-6.5); NEUT% 68.4 % (42.2-75.2); PLT 434 X1000 (130-400); RBC 3.93 XMIL (4.2-5.4); RDW 15.7 % (11.5-14.5); WBC 13.65 X1000 (4.8-10.8)
[2018-12-25 07:32] LABS: AGAP 11; BUN 7 mg/dL (8-22); CALCIUM 8.8 mg/dL (8.8-10.2); CHLORIDE 103 mmol/L (98-107); COSMO 275; CREATININE 0.7 mg/dL (0.5-0.9); ESTIMATED GFR > 60; GLUCOSE 92 mg/dL (70-104); POTASSIUM 4.2 mmol/L (3.5-5.1); SODIUM 139 mmol/L (136-145); TCO2 25 mmol/L (25-35)
[2018-12-25] MEDS: PHENERGAN IV PRN ×2 (08:49→20:54)
[2018-12-25 08:59] LABS: ANISOCYTOSIS 1+; EOS 1 % (1-10); LYMPHS 14 % (21-51); MONO 3 % (1-9); SEGS 79 % (42-75)
[2018-12-25 10:44] LABS: C DIFF TOXIN PL NEGATIVE (NEGATIVE)
[2018-12-25] MEDS ORDERED: LEVAQUIN 750 MG/D5W 750 MG/150 ML IVPB IV SCH (14:15)
[2018-12-25] MEDS: LOVENOX SUBQ SCH (14:21)
[2018-12-25] MEDS: SODIUM CHLORIDE 0.9% INJ PRN (20:55)
[2018-12-26] MEDS: TORADOL IV SCH ×2 (02:28→09:18)
[2018-12-26] MEDS: AZACTAM 1 GM in NS 50 ML IV SCH (05:51)
[2018-12-26] MEDS: NS 1,000 ML IV SCH (05:55)
[2018-12-26 07:00] LABS: BASO# 0.02 X1000 (0.0-0.2); BASO% 0.2 % (0.0-0.8); EOS# 0.14 X1000 (0.0-0.7); EOS% 1.3 % (0.0-10.0); HEMATOCRIT 33.9 % (37.0-47.0); HEMOGLOBIN 10.3 g/dL (12.0-16.0); IMM GRAN# 0.09 X1000 (0.0-0.04); IMM GRAN% 0.9 % (0.0-0.5); LYMPH# 2.78 X1000 (1.2-3.4); LYMPH% 26.3 % (20.5-51.1); MCH 27.8 PG (27-31); MCHC 30.4 g/dL (33-37); MCV 91.6 FL (81-99); MONO% 6.6 % (1.7-9.3); MPV 10.1 FL (7.4-10.4); NEUT# 6.84 X1000 (1.4-6.5); NEUT% 64.7 % (42.2-75.2); PLT 401 X1000 (130-400); RDW 16.1 % (11.5-14.5); WBC 10.57 X1000 (4.8-10.8)
[2018-12-26 07:10] LABS: AGAP 8; BUN 7 mg/dL (8-22); CHLORIDE 109 mmol/L (98-107); COSMO 279; CREATININE 0.7 mg/dL (0.5-0.9); ESTIMATED GFR > 60; GLUCOSE 90 mg/dL (70-104); POTASSIUM 4.3 mmol/L (3.5-5.1); SODIUM 141 mmol/L (136-145); TCO2 24 mmol/L (25-35)
--- NOTE | 2018-12-26 07:39 | PROGRESS NOTE ---
DATE: 12/25/2018 SUBJECTIVE: The patient reports feeling less nauseated. Actually, she wants to try more consistent food. OBJECTIVE: Vital Signs: Temperature 98.6, heart rate 81, respiratory rate 18, blood pressure 122/65, O2 sat 99% on room air. General: This is a 38-year-old obese female lying in bed in no acute distress. Cardiovascular: S1, S2 heard. No murmurs, gallops or rubs. Regular rate and rhythm. Respiratory: Clear bilaterally to auscultation. No work of breathing. Not using accessory muscles. Abdomen: Soft, nontender to palpation. Bowel sounds present. No organomegaly. Extremities: No clubbing, cyanosis or edema. Peripheral pulses present in both legs. Neurologic: Patient is alert and oriented x 3. Moves 4 extremities. LABORATORY DATA: White cell count 13.65, hemoglobin. 11.3, hematocrit 35.6, platelets 434,000, with BMP that is unremarkable. Urine culture is positive for gram-negative rods and the final sensitivity is not back yet. C difficile toxin and antigen are negative. ASSESSMENT: 1. Acute pyelonephritis. The patient is feeling better, reporting no burning on urination. So, at this point we will continue with aztreonam and levofloxacin. She is receiving Toradol for back pain. We will continue also with IV fluids and considering that this patient is feeling less nauseated, will change diet to GI soft and see how she does. 2. Acute diarrhea. Because of that we have ordered stool studies and so far Clostridium difficile toxin and antigen are negative. The stool for wbc, there are few white cell counts and the ova and parasites we did not see anything and stool culture still positive. At this point, we will continue monitoring this patient closely. cc: Marck Haywood MD
[2018-12-26] MEDS: PHENERGAN IV PRN (09:30)
[2018-12-26] MEDS ORDERED: NS 1,000 ML IV SCH (11:30)
[2018-12-26 13:00] VITALS: BP 151/59
--- NOTE | 2018-12-27 01:12 | DISCHARGE SUMMARY ---
ADMISSION DATE: 12/24/2018 DISCHARGE DATE: 12/26/2018 DISCHARGE DIAGNOSES: 1. Acute pyelonephritis. 2. Acute kidney injury secondary to dehydration. HOSPITAL COURSE: This is a 38-year-old female who presented to the emergency department with complaints of having intractable nausea and vomiting. She was also having lower back pain. She was diagnosed as having acute pyelonephritis on CT scan and was therefore admitted to the hospital for further care. She received IV levofloxacin along with aztreonam. She also received IV fluids and was given promethazine IV for nausea. Her leukocytosis along with fever have resolved. She did grow E. Coli on her urine culture that has been sensitive to levofloxacin. Her condition has improved and therefore she is going to be discharged home today. Her creatinine levels were normal. DISCHARGE MEDICATION: Levofloxacin 750 mg orally once daily for 7 days. CONDITION: Stable DISPOSITION: Home. cc: Fredi Mooney MD
== END 2018-12-26 14:33 | disposition home or self-care (01) | DRG 690 ==
LOC: P.ED 08:54 → SUATTDRO 08:55 → P.MEDSURG 08:55
PROVIDERS: ATTEND Internal Medicine
CPT/HCPCS: 74177; 76770; 80048; 80053; 81001; 83605; 85025; 87040; 87045; 87046; 87077; 87088; 87177; 87186; 87205; 87324; 87449; 88313; 89055; 96361; 96365; 96375; 99285; A9270; J1650; J1885; J1956; J2405; J2550; J7030; Q9967; S0073